=== PATIENT | female | born 1940 | race Caucasian/White ===

== ENCOUNTER → 2016-10-25 | Outpatient (CLI) | payer OTHER ==
[~2016-10-25] MED LIST: ADAL40KI SQ; ASPEC325 PO; ASPI81TA28 PO; ATOR10TA82 PO; CALC200S7; CALC500C70 PO; FLV1 PO; FSMD/70 PO; FURO-85 PO; GADAVIST IV PRN; HYDR-5688 PO; IBUP-1105 PO; KCLP20 PO; LDDP5 TD; LEVO25TA PO; LISI-461 PO; LOSA50TA6 PO; LSX40 PO; METH2.5T PO; OXYC-57 PO; POTA20TA16 PO; PRAM0.129 PO; PRD/1 PO; PRLSR20 PO; SULI200T4 PO; VTMB12 PO; VTMD1000 PO
--- NOTE | 2016-10-25 16:05 | DIAGNOSTIC IMAGING REPORT ---
MRI pelvis PELVIS COMBO CLINICAL HISTORY: ARTHROPATHY OF PELVIS pain TECHNIQUE: Multiaxial MRI acquisition COMPARISON STUDY: None FINDINGS: Prior L4-L5 laminectomy and fusion. Prior left hip arthroplasty. Signal characteristics the pelvic osseous structures appear unremarkable. Potential small fluid component lateral to the left hip arthroplasty which may be indicative of a small residual seroma and/or hematoma. Abnormal signal characteristics of the sacral wings Note is made that there is diminished signal involving the possibility of nonvisualized sacral insufficiency fractures/nonspecific bone marrow edema. IMPRESSION: 1. Altered signal in general throughout the bulk of the sacrum and sacral wings bilaterally. 2. Possibility of sacral insufficiency fractures/or nonspecific bone marrow edema must be considered. 3. Findings of a low lumbar laminectomy and fusion as well as a left hip arthroplasty are noted. 4. Small seroma lateral to the left hip arthroplasty. Electronically signed by: Chad Noel M.D. 10/25/2016 4:03 PM Dictated Date/Time: 10/25/2016 3:59 PM
== END | disposition home or self-care (01) ==
LOC: C.MRI 13:47
PROVIDERS: ATTEND Orthopaedic Surgery Orthopaedic Surgery of the Spine
DX: M16.10 Unilateral primary osteoarthritis, unspecified hip (principal); M46.1 Sacroiliitis, not elsewhere classified

== ENCOUNTER 2016-11-05 15:10 | Observation (INO) | payer OTHER ==
[~2016-11-05] VITALS: Ht 157.5 cm; Wt 75.0 kg
[~2016-11-05 15:10] MED LIST changes: -ADAL40KI SQ; -ASPI81TA28 PO; -CALC200S7; -FSMD/70 PO; -FURO-85 PO; -GADAVIST IV PRN; -IBUP-1105 PO; -LDDP5 TD; -LOSA50TA6 PO; -POTA20TA16 PO; -PRLSR20 PO; -SULI200T4 PO; -VTMB12 PO; -VTMD1000 PO
[2016-11-05] MEDS ORDERED: ONDANSETRON INJ 2 MG/ML 2 ML VIAL IV STA (15:42)
[2016-11-05] MEDS: HYDROmorphone INJ 0.5 MG/0.5 ML SYR IV PRN ×2 (16:14→18:52)
[2016-11-05 16:16] LABS: BASO % 0.5 %; BASO ABS # 0.04 K/uL (0-0.2); COMPLETE YES; EOS % 0.2 %; HEMATOCRIT 43.3 % (37-47); IG% 1.1 %; LYMPH % 16.7 %; LYMPH ABS # 1.41 K/uL (1.2-3.4); MEAN CELL VOLUME 102.1 fL (80-100); MEAN CORPUSCULAR HEMOGLOBIN 31.6 pg (25-34); MEAN CORPUSCULAR HGB CONC 30.9 g/dl (32-36); MEAN PLATELET VOLUME 9.8 fL (7.4-10.4); MONO % 3.2 %; NEUT % 78.3 %; PLATELET COUNT 284 K/uL (130-400); RED BLOOD COUNT 4.24 M/uL (4.2-5.4); WHITE BLOOD COUNT 8.42 K/uL (4.8-10.8)
[2016-11-05 16:24] LABS: PROTHROMBIN TIME (PATIENT) 11.2 SECONDS (9.0-12.0)
[2016-11-05 16:31] LABS: BUN/CREATININE RATIO 15.6 (10-20); CALCIUM 8.9 mg/dl (8.5-10.1); POTASSIUM 4.3 mmol/L (3.5-5.1)
--- NOTE | 2016-11-05 16:48 | DIAGNOSTIC IMAGING REPORT ---
CT SCAN OF THE BONY PELVIS WITHOUT IV CONTRAST CLINICAL HISTORY: Right pelvic pain. Known sacral insufficiency fractures. COMPARISON STUDY: MRI of the pelvis dated 10/25/2016. TECHNIQUE: CT scan of the bony pelvis is performed from the pelvic inlet to the proximal femora. Images are reviewed in the axial, sagittal and coronal planes. IV contrast was not administered for this examination. CT DOSE: 880.04 mGy cm FINDINGS: The skeletal structures are osteopenic. Bilateral sacral insufficiency fractures are identified. These were also seen on the 10/25/2016 pelvic MRI. No additional fracture is seen. No lytic or blastic lesions are identified. Fusion hardware is noted at L4-L5. A left hip arthroplasty is in place. There is no radiographic evidence of fracture or osteonecrosis involving the right hip. Sclerotic change is seen at the pubic symphysis. There is atherosclerotic calcification of the distal abdominal aorta and iliac arteries. 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 The bladder is grossly normal as visualized. The uterus is surgically absent. No adnexal lesion is suggested. There is moderate diverticulosis of the sigmoid colon without CT evidence of acute diverticulitis. No pelvic sidewall or inguinal lymphadenopathy is seen. There is symmetric atrophy of the pelvic musculature. A small fat-containing umbilical hernia is noted. IMPRESSION: 1. Bilateral sacral insufficiency fractures. These were also seen by MRI on 10/25/2016. 2. No acute bony abnormality is identified in the pelvis. 3. Sigmoid diverticulosis without CT evidence of acute diverticulitis. 4. Additional findings as above. Dictated: 11/05/2016 4:39 PM Transcribed: 11/05/2016 4:47 PM Greg Electronically signed by: Preet Madera M.D. 11/05/2016 4:54 PM Dictated Date/Time: 11/05/2016 4:39 PM
[2016-11-05] MEDS ORDERED: POTA20TA16 PO (16:55)
[2016-11-05] MEDS ORDERED: FSMD/70 PO (16:55)
[2016-11-05] MEDS ORDERED: FURO-85 PO (16:55)
[2016-11-05] MEDS ORDERED: PRAM0.129 PO (16:55)
[2016-11-05] MEDS ORDERED: ASPI81TA28 PO (16:55)
[2016-11-05] MEDS ORDERED: OXYC-57 PO (16:55)
[2016-11-05] MEDS ORDERED: SULI200T4 PO (16:55)
[2016-11-05] MEDS ORDERED: LOSA50TA6 PO (16:55)
[2016-11-05] MEDS ORDERED: PRLSR20 PO (16:55)
[2016-11-05] MEDS ORDERED: PRD/1 PO (16:55)
[2016-11-05] MEDS ORDERED: ADAL40KI SQ (17:37)
[2016-11-05] MEDS ORDERED: CALC200S7 (17:37)
[2016-11-05] MEDS ORDERED: HYDR-5688 PO (17:38)
--- NOTE | 2016-11-05 17:39 | DIAGNOSTIC IMAGING REPORT ---
ULTRASOUND RIGHT LOWER EXTREMITY VENOUS CLINICAL HISTORY: Right leg swelling. COMPARISON STUDY: No priors. TECHNIQUE: Real-time, grayscale, and color Doppler sonography of the deep veins of the right lower extremity was performed from the inguinal crease to the calf. Compression and augmentation were utilized. FINDINGS: There is no sonographic evidence of deep venous thrombosis identified in the right lower extremity. The common femoral, superficial femoral, and popliteal veins are patent and normally compressible. The greater saphenous vein and the profunda femoris vein at the junction with the common femoral vein are clear. The visualized calf veins are patent. IMPRESSION: There is no sonographic evidence of deep venous thrombosis identified in the right lower extremity. Electronically signed by: Preet Madera M.D. 11/05/2016 5:38 PM Dictated Date/Time: 11/05/2016 5:37 PM
[2016-11-05] MEDS ORDERED: MoRPHine SULFATE 2 MG/ML CARP IV PRN (21:00)
[2016-11-05] MEDS ORDERED: ONDANSETRON INJ 2 MG/ML 2 ML VIAL IV PRN (21:00)
[2016-11-05] MEDS ORDERED: MoRPHine SULFATE 4 MG/ML 1 ML CARP\\VIAL IV PRN (21:00)
[2016-11-05] MEDS: TRIAMCINOLONE ACET 0.5% CR 15 GM TUBE EXT SCH (21:00)
[2016-11-05 22:18] VITALS: BP 150/78; PULSE 94; TEMP 36.9; Ht 157.5 cm; Wt 75.0 kg
[2016-11-05 22:54] VITALS: BP 149/70; PULSE 62; TEMP 36.8; O2SAT 93
[2016-11-05] MEDS: PRAMIPEXOLE DIHYDROCHLORIDE 0.25MG TAB PO SCH (23:11)
[2016-11-05] MEDS: CALCIUM 600MG + VIT D 400 IU TAB PO SCH (23:12)
--- NOTE | 2016-11-05 23:17 | History and Physical ---
History & Physical Date & Time of Service: Nov 05, 2016 at 23:17 Chief Complaint: Bilateral Sacral Insufficiency Fx Primary Care Physician: Ching Hu D.O. History of Present Illness Source: patient The patient is a 76-year-old female who presents to the emergency department with worsening right pelvic and hip pain, that initially began about 1-1/2 weeks ago, and has worsened to the point of not being able to ambulate. She had imaging studies performed on October 25 which showed bilateral sacral insufficiency fractures, for which she has been followed by Dr. Bowman from orthopedic surgery. 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 (3) Rheumatoid arthritis Status: Chronic Surgical Problems: (1) H/O: hysterectomy Status: Resolved (2) History of left hip replacement Status: Resolved (3) Hx of CABG Status: Resolved Family History Cancer Hypertension Social History Smoking Status: Former Smoker Smokeless Tobacco Use: No Alcohol Use: none Drug Use: none Occupational Status: retired Multi-Drug Resistant Organisms History of MDRO: No Allergies Coded Allergies: Acetaminophen (Verified Adverse Reaction, Intermediate, stomach pain/ nausea, vomiting, 03/15/14) Oxycodone (Verified Adverse Reaction, Intermediate, stomach pain/ nausea, vomiting, 03/15/14) Home Medications Scheduled Adalimumab (Humira Pen), 1 DOSE SQ [id number] Aspirin (Aspirin Ec), 81 MG PO DAILY Atorvastatin (Lipitor), 10 MG PO DAILY Calcitonin ([place]) (Miacalcin), 1 SPRAY NA UD Calcium/Vitamin D (Os-Ruben 500 Plus D), 1 TAB PO BID Folic Acid (Folic Acid), 1 MG PO DAILY Levothyroxine Sodium (Synthroid), 25 MCG PO DAILY Losartan Potassium (Cozaar), 50 MG PO DAILY Methotrexate (Methotrexate), 15 MG PO TUESDAY Omeprazole (Prilosec), 20 MG PO DAILY Pramipexole (Mirapex), 2 TABS PO BID Prednisone (Prednisone), 3 MG PO DAILY Scheduled PRN Furosemide (Lasix), 20 MG PO DAILY PRN for EDEMA Hydrocodone/Acetaminophen 5MG/325MG ([place] 5MG/325MG), 1-2 TABLET PO Q6 PRN for Pain Potassium Ext Rel (Klor-Con), 20 MEQ PO DAILY PRN for Sulindac ([place]), 200 MG PO BID PRN for PRN Review of Systems The patient denies chest pain, palpitations, shortness of breath, cough, lower extremity swelling, vision change, hearing change, sore throat, fevers, chills, sweats, weight change, fatigue, nausea, vomiting, abdominal pain, blood in urine or stool, dysuria, urinary frequency or urgency, lightheadedness, dizziness, headache, memory loss, rash, abnormal bruising or bleeding, numbness or tingling in arms, generalized arthralgias or myalgias, neck pain, night sweats, or allergy symptoms. The review of systems is otherwise negative other than for that already noted above, and at least 10 systems have been reviewed. Physical Exam Vital Signs Date Time Temp Pulse Resp B/P (MAP) Pulse Ox O2 Delivery O2 Flow Rate FiO2 11/05/16 22:18 36.9 94 20 150/78 Room Air 11/05/16 21:47 58 20 154/78 98 Room Air 11/05/16 19:47 58 18 153/77 96 Room Air 11/05/16 18:05 63 20 160/99 93 Room Air 11/05/16 16:20 63 20 139/71 93 Room Air 11/05/16 16:19 93 Room Air 11/05/16 15:19 36.6 66 20 167/66 99 Room Air The patient is awake, well-developed and adequately nourished, alert and oriented 3, normocephalic and atraumatic, lying in bed and in no acute distress. HEENT--PERRL, EOMI, mucous membranes and oropharynx dry. Neck--supple, no JVD or bruits, thyroid normal, trachea midline, no adenopathy. Heart--normal S1 and S2, no extra beats, no murmurs, rubs or gallops. Lungs--clear bilaterally with good air movement, no respiratory distress, no accessory muscle use. Abdomen--normal bowel sounds and soft, nontender and nondistended, no hernias or masses, no organomegaly. Extremities--no cyanosis, clubbing or edema. There are good distal pulses b/l. Dermatologic--left lower extremity involving the foot, ankle and lower third of leg with psoriasis. Neurologic--cranial nerves II through XII grossly intact. Rheumatologic--decreased range of motion of right hip with reproducible pain over right pelvis and hip. Psychiatric--normal affect. Diagnostics Laboratory Results Results Past 24 Hours Test 11/05/16 16:00 Range/Units White Blood Count 8.42 4.8-10.8 K/uL Red Blood Count 4.24 4.2-5.4 M/uL Hemoglobin 13.4 12.0-16.0 g/dL Hematocrit 43.3 37-47 % Mean Corpuscular Volume 102.1 80-100 fL Mean Corpuscular Hemoglobin 31.6 25-34 pg Mean Corpuscular Hemoglobin Concent 30.9 32-36 g/dl Platelet Count 284 130-400 K/uL Mean Platelet Volume 9.8 7.4-10.4 fL Neutrophils (%) (Auto) 78.3 % Lymphocytes (%) (Auto) 16.7 % Monocytes (%) (Auto) 3.2 % Eosinophils (%) (Auto) 0.2 % Basophils (%) (Auto) 0.5 % Neutrophils # (Auto) 6.59 1.4-6.5 K/uL Lymphocytes # (Auto) 1.41 1.2-3.4 K/uL Monocytes # (Auto) 0.27 0.11-0.59 K/uL Eosinophils # (Auto) 0.02 0-0.5 K/uL Basophils # (Auto) 0.04 0-0.2 K/uL RDW Standard Deviation 56.4 36.4-46.3 fL RDW Coefficient of Variation 15.2 11.5-14.5 % Immature Granulocyte % (Auto) 1.1 % Immature Granulocyte # (Auto) 0.09 0.00-0.02 K/uL Prothrombin Time 11.2 9.0-12.0 SECONDS Prothromb Time International Ratio 1.0 0.9-1.1 Activated Partial Thromboplast Time 25.9 21.0-31.0 SECONDS Partial Thromboplastin Ratio 1.0 Sodium Level 143 136-145 mmol/L Potassium Level 4.3 3.5-5.1 mmol/L Chloride Level 109 98-107 mmol/L Carbon Dioxide Level 27 21-32 mmol/L Anion Gap 7.0 3-11 mmol/L Blood Urea Nitrogen 16 7-18 mg/dl Creatinine 1.00 0.60-1.20 mg/dl Est Creatinine Clear Calc Drug Dose 45.0 ml/min Estimated GFR () 62.5 Estimated GFR (Non- 53.9 BUN/Creatinine Ratio 15.6 10-20 Random Glucose 129 70-99 mg/dl Calcium Level 8.9 8.5-10.1 mg/dl Diagnostic Radiology Patient Name: DOMINIQUE POLK Unit Number: [id number] Dictated: 11/05/161638 Transcribed: 11/05/161646 Printed Date/Time: [~ rep prt dt]/[~ rep prt tm] [~ rep ct labl] - [~ rep ct ivnm] [facility] [place] [address] Dictated: 11/05/161638 Transcribed: 11/05/161646 Printed Date/Time: [~ rep prt dt]/[~ rep prt tm] [~ rep ct labl] - [~ rep ct ivnm] [~ rep ct add3]] CT SCAN OF THE BONY PELVIS WITHOUT IV CONTRAST CLINICAL HISTORY: Right pelvic pain. Known sacral insufficiency fractures. COMPARISON STUDY: MRI of the pelvis dated 10/25/2016. TECHNIQUE: CT scan of the bony pelvis is performed from the pelvic inlet to the proximal femora. Images are reviewed in the axial, sagittal and coronal planes. IV contrast was not administered for this examination. CT DOSE: 880.04 mGy cm FINDINGS: The skeletal structures are osteopenic. Bilateral sacral insufficiency fractures are identified. These were also seen on the 10/25/2016 pelvic MRI. No additional fracture is seen. No lytic or blastic lesions are identified. Fusion hardware is noted at L4-L5. A left hip arthroplasty is in place. There is no radiographic evidence of fracture or osteonecrosis involving the right hip. Sclerotic change is seen at the pubic symphysis. There is atherosclerotic calcification of the distal abdominal aorta and iliac arteries. 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 The bladder is grossly normal as visualized. The uterus is surgically absent. No adnexal lesion is suggested. There is moderate diverticulosis of the sigmoid colon without CT evidence of acute diverticulitis. No pelvic sidewall or inguinal lymphadenopathy is seen. There is symmetric atrophy of the pelvic musculature. A small fat-containing umbilical hernia is noted. IMPRESSION: 1. Bilateral sacral insufficiency fractures. These were also seen by MRI on 10/25/2016. 2. No acute bony abnormality is identified in the pelvis. 3. Sigmoid diverticulosis without CT evidence of acute diverticulitis. 4. Additional findings as above. Dictated: 11/05/2016 4:39 PM Transcribed: 11/05/2016 4:47 PM YAYO_Romero Electronically signed by: Preet Madera M.D. 11/05/2016 4:54 PM Dictated Date/Time: 11/05/2016 4:39 PM The status of this report is Signed. Draft = Not yet reviewed or approved by Radiologist. Signed = Reviewed and approved by Radiologist. <AttendingPhy></AttendingPhy> <FamilyPhy>Ching Hu D.O.</FamilyPhy> < PrimaryPhy>Ching Hu D.O.</PrimaryPhy> <UnitNumber>[id number]</UnitNumber> <VisitNumber>[id number]</VisitNumber> <PatientName>DOMINIQUE POLK</PatientName > <DateOfBirth>1940</DateOfBirth> <Location>[facility]</Location> <ServiceDate> 11/05/16</ServiceDate> <MNE>ESINDI</MNE> <OrderingPhy>[place] MD</ OrderingPhy> <OrderingPhyMNE>f rep ord dr gerardo</OrderingPhyMNE> <DictatingPhyMNE> f rep dict dr greardo</DictatingPhyMNE> <CCListMNE>f rep ct humaira</CCListMNE> < AdmittingPhyMNE>f pt admit dr gerardo</AdmittingPhyMNE> <AttendingPhyMNE>f pt attend dr gerardo</AttendingPhyMNE> <ConsultingPhyMNE>f pt consult dr gerardo</ConsultingPhyMNE> <FamilyPhyMNE>f pt fam dr gerardo</FamilyPhyMNE> <OtherPhyMNE>f pt other dr gerardo</OtherPhyMNE> < PrimaryPhyMNE>f pt prim care dr gerardo</PrimaryPhyMNE> <ReferringPhyMNE>f pt referring dr gerardo</ReferringPhyMNE> Patient Name: DOMINIQUE POLK Unit Number: [id number] Dictated: 11/05/161736 Transcribed: 11/05/161736 EV Printed Date/Time: [~ rep prt dt]/[~ rep prt tm] [~ rep ct labl] - [~ rep ct ivnm] [facility] [place] [address] Dictated: 11/05/161736 Transcribed: 11/05/161736 EV Printed Date/Time: [~ rep prt dt]/[~ rep prt tm] [~ rep ct labl] - [~ rep ct ivnm] ULTRASOUND RIGHT LOWER EXTREMITY VENOUS CLINICAL HISTORY: Right leg swelling. COMPARISON STUDY: No priors. TECHNIQUE: Real-time, grayscale, and color Doppler sonography of the deep veins of the right lower extremity was performed from the inguinal crease to the calf. Compression and augmentation were utilized. FINDINGS: There is no sonographic evidence of deep venous thrombosis identified in the right lower extremity. The common femoral, superficial femoral, and popliteal veins are patent and normally compressible. The greater saphenous vein and the profunda femoris vein at the junction with the common femoral vein are clear. The visualized calf veins are patent. IMPRESSION: There is no sonographic evidence of deep venous thrombosis identified in the right lower extremity. Electronically signed by: Preet Madera M.D. 11/05/2016 5:38 PM Dictated Date/Time: 11/05/2016 5:37 PM The status of this report is Signed. Draft = Not yet reviewed or approved by Radiologist. Signed = Reviewed and approved by Radiologist. <AttendingPhy></AttendingPhy> <FamilyPhy>Ching Hu DStevie</FamilyPhy> < PrimaryPhy>Ching Hu D.O.</PrimaryPhy> <UnitNumber>[id number]</UnitNumber> <VisitNumber>[id number]</VisitNumber> <PatientName>DOMINIQUE POLK</PatientName > <DateOfBirth>1940</DateOfBirth> <Location>[facility]</Location> <ServiceDate> 06/02/17</ServiceDate> <MNE>ESINDI</MNE> <OrderingPhy>[place] MD</ OrderingPhy> <OrderingPhyMNE>f rep ord dr gerardo</OrderingPhyMNE> <DictatingPhyMNE> f rep dict dr gerardo</DictatingPhyMNE> <CCListMNE>f rep ct mne</CCListMNE> < AdmittingPhyMNE>f pt admit dr gerardo</AdmittingPhyMNE> <AttendingPhyMNE>f pt attend dr gerardo</AttendingPhyMNE> <ConsultingPhyMNE>f pt consult dr gerardo</ConsultingPhyMNE> <FamilyPhyMNE>f pt fam dr gerardo</FamilyPhyMNE> <OtherPhyMNE>f pt other dr gerardo</OtherPhyMNE> < PrimaryPhyMNE>f pt prim care dr gerardo</PrimaryPhyMNE> <ReferringPhyMNE>f pt referring dr gerardo</ReferringPhyMNE> Impression Assessment and Plan Bilateral sacral insufficiency fractures/history L4 5 fusion/left total hip arthroplasty/rheumatoid arthritis--the patient will be admitted to the medical surgical floor due to inability to ambulate and for pain management. We will consult for PT/OT and social media senior associate. She will likely need an inpatient rehabilitation stay. Outpatient regimen of Humira and methotrexate will be held. We'll consult Dr. Bowman from orthopedic surgery, whom she has followed with in the outpatient setting. Continue calcitonin, calcium and vitamin D, folic acid, and prednisone 3 mg by mouth daily. Restless leg syndrome--continue pramipexole 2 tablets by mouth twice a day. GERD--change omeprazole 20 mg by mouth daily to pantoprazole 40 mg by mouth daily. Left lower extremity psoriasis--start triamcinolone cream twice a day. Hypothyroidism--continue levothyroxine sodium 25 g by mouth daily. Hypercholesterolemia--continue atorvastatin 10 mg by mouth daily. Hypertension--continue losartan 50 mg by mouth daily and aspirin 81 mg by mouth daily. Level of Care Med/Surg Advanced Directives Existing Advance Directive: No Existing Living Will: Yes Existing Power of Skip Locator: Yes Resuscitation Status FULL RESUSCITATION VTE Prophylaxis VTE Risk Assessment Done? Y/N: Yes Risk Level: Not Assessed Given or contraindicated: SCD's
[2016-11-05] MEDS ORDERED: IV FLUIDS COMPLETED PRN (23:45)
[2016-11-05] MEDS: HYDROCODONE/ACETAMOPHEN 5/325MG TAB PO PRN (23:50)
--- NOTE | 2016-11-06 00:40 | EMERGENCY ROOM VISIT NOTE ---
History Report prepared by Deana: Jorge Branch Under the Supervision of: Dr. Jose Vegas M.D. First contact with patient: 15:35 Chief Complaint: PELVIC PAIN Stated Complaint: PELVIS PAIN History of Present Illness The patient is a 76 year old female who presents to the Emergency Room with complaints of severe and worsening right pelvic pain starting about a week and a half ago. She reports pain radiation to the right groin area. She also complains of right lower extremity swelling. She has worsening pain with movement and ambulation. She is no longer able to bear weight on the right leg due to the severity of the pain. She has a history of osteoporosis. She had an MRI about a week and a half ago which showed questions of sacral insufficiency fractures. She has been following the instructions of the orthopedic surgeon without relief. She has been taking calcium with vitamin D and steroids as prescribed without relief. She denies any recent falls or injuries. Pt denies LOC, headache, fevers, chills, diaphoresis, visual changes, neck pain , chest pain, breathing difficulties, nausea, vomiting, abdominal pain, back pain, melena, hematochezia, urinary symptoms, numbness, weakness, rash, or other complaints. Source of History: patient Onset: about a week and a half ago Position: pelvis (right) Symptom Intensity: severe Timing: worsening Modifying Factors (Worsening): movement, other (ambulation) Modifying Factors (Relieving): other (calcium with vitamin D and steroids as prescribed without relief) Review of Systems See HPI for pertinent positives and negatives. A total of ten systems were reviewed and were otherwise negative. Past Medical & Surgical Medical Problems: (1) DJD (degenerative joint disease) of hip (2) Lumbar disc herniation with radiculopathy (3) Rheumatoid arthritis Surgical Problems: (1) H/O: hysterectomy (2) History of left hip replacement (3) Hx of CABG Family History Cancer Hypertension Social History Smoking Status: Former Smoker Alcohol Use: none Marital Status: Housing Status: lives with family Occupation Status: retired Current/Historical Medications Scheduled Adalimumab (Humira Pen), 1 DOSE SQ [id number] Aspirin (Aspirin Ec), 81 MG PO DAILY Atorvastatin (Lipitor), 10 MG PO DAILY Calcitonin (Alleghany) (Miacalcin), 1 SPRAY NA UD Calcium/Vitamin D (Os-Ruben 500 Plus D), 1 TAB PO BID Folic Acid (Folic Acid), 1 MG PO DAILY Levothyroxine Sodium (Synthroid), 25 MCG PO DAILY Losartan Potassium (Cozaar), 50 MG PO DAILY Methotrexate (Methotrexate), 15 MG PO TUESDAY Omeprazole (Prilosec), 20 MG PO DAILY Pramipexole (Mirapex), 2 TABS PO BID Prednisone (Prednisone), 3 MG PO DAILY Scheduled PRN Furosemide (Lasix), 20 MG PO DAILY PRN for EDEMA Hydrocodone/Acetaminophen 5MG/325MG (Mesa 5MG/325MG), 1-2 TABLET PO Q6 PRN for Pain Potassium Ext Rel (Klor-Con), 20 MEQ PO DAILY PRN for Sulindac (Clinoril), 200 MG PO BID PRN for PRN Allergies Coded Allergies: Acetaminophen (Verified Adverse Reaction, Intermediate, stomach pain/ nausea, vomiting, 03/15/14) Oxycodone (Verified Adverse Reaction, Intermediate, stomach pain/ nausea, vomiting, 03/15/14) Physical Exam Vital Signs Date Time Temp Pulse Resp B/P (MAP) Pulse Ox O2 Delivery O2 Flow Rate FiO2 11/05/16 19:47 58 18 153/77 96 Room Air 11/05/16 18:05 63 20 160/99 93 Room Air 11/05/16 16:20 63 20 139/71 93 Room Air 11/05/16 16:19 93 Room Air 11/05/16 15:19 36.6 66 20 167/66 99 Room Air Physical Exam GENERAL: Awake, alert, well-appearing, in no distress HENT: Normocephalic, atraumatic. Oropharynx unremarkable. EYES: Normal conjunctiva. Sclera non-icteric. NECK: Supple. No nuchal rigidity. FROM. No JVD. RESPIRATORY: Clear to auscultation. CARDIAC: Regular rate, normal rhythm. Extremities warm and well perfused. Pulses equal. ABDOMEN: Soft, non-distended. No tenderness to palpation. No rebound or guarding. No masses. RECTAL: Deferred. MUSCULOSKELETAL: Chest examination reveals no tenderness. The back is symmetrical on inspection without obvious abnormality. There is no CVA tenderness to palpation. No joint edema. LOWER EXTREMITIES: Calves are non-tender. No discoloration. Right leg is slightly larger than the left. 1+ edema on the right side. Range of motion of the right hip is limited secondary to pain. Right hip and right hemipelvis pain with palpation. NEURO: Normal sensorium. No sensory or motor deficits noted. SKIN: No rash or jaundice noted. Medical Decision & Procedures ER Provider Diagnostic Interpretation: CT and US: Radiology results as stated below per my review and radiologist interpretation CT SCAN OF THE BONY PELVIS WITHOUT IV CONTRAST CLINICAL HISTORY: Right pelvic pain. Known sacral insufficiency fractures. COMPARISON STUDY: MRI of the pelvis dated 10/25/2016. TECHNIQUE: CT scan of the bony pelvis is performed from the pelvic inlet to the proximal femora. Images are reviewed in the axial, sagittal and coronal planes. IV contrast was not administered for this examination. CT DOSE: 880.04 mGy cm FINDINGS: The skeletal structures are osteopenic. Bilateral sacral insufficiency fractures are identified. These were also seen on the 10/25/2016 pelvic MRI. No additional fracture is seen. No lytic or blastic lesions are identified. Fusion hardware is noted at L4-L5. A left hip arthroplasty is in place. There is no radiographic evidence of fracture or osteonecrosis involving the right hip. Sclerotic change is seen at the pubic symphysis. There is atherosclerotic calcification of the distal abdominal aorta and iliac arteries. 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 The bladder is grossly normal as visualized. The uterus is surgically absent. No adnexal lesion is suggested. There is moderate diverticulosis of the sigmoid colon without CT evidence of acute diverticulitis. No pelvic sidewall or inguinal lymphadenopathy is seen. There is symmetric atrophy of the pelvic musculature. A small fat-containing umbilical hernia is noted. IMPRESSION: 1. Bilateral sacral insufficiency fractures. These were also seen by MRI on 10/25/2016. 2. No acute bony abnormality is identified in the pelvis. 3. Sigmoid diverticulosis without CT evidence of acute diverticulitis. 4. Additional findings as above. Dictated: 11/05/2016 4:39 PM Transcribed: 11/05/2016 4:47 PM Greg Electronically signed by: Preet Madera M.D. 11/05/2016 4:54 PM Dictated Date/Time: 11/05/2016 4:39 PM ULTRASOUND RIGHT LOWER EXTREMITY VENOUS CLINICAL HISTORY: Right leg swelling. COMPARISON STUDY: No priors. TECHNIQUE: Real-time, grayscale, and color Doppler sonography of the deep veins of the right lower extremity was performed from the inguinal crease to the calf. Compression and augmentation were utilized. FINDINGS: There is no sonographic evidence of deep venous thrombosis identified in the right lower extremity. The common femoral, superficial femoral, and popliteal veins are patent and normally compressible. The greater saphenous vein and the profunda femoris vein at the junction with the common femoral vein are clear. The visualized calf veins are patent. IMPRESSION: There is no sonographic evidence of deep venous thrombosis identified in the right lower extremity. Electronically signed by: Preet Madera M.D. 11/05/2016 5:38 PM Dictated Date/Time: 11/05/2016 5:37 PM Laboratory Results 11/05/16 16:00 Red Blood Count 4.24, Mean Corpuscular Volume 102.1, Mean Corpuscular Hemoglobin 31.6, Mean Corpuscular Hemoglobin Concent 30.9, Mean Platelet Volume 9.8, Neutrophils (%) (Auto) 78.3, Lymphocytes (%) (Auto) 16.7, Monocytes (%) ( Auto) 3.2, Eosinophils (%) (Auto) 0.2, Basophils (%) (Auto) 0.5, Neutrophils # ( Auto) 6.59, Lymphocytes # (Auto) 1.41, Monocytes # (Auto) 0.27, Eosinophils # ( Auto) 0.02, Basophils # (Auto) 0.04 11/05/16 16:00 Test 11/05/16 16:00 White Blood Count 8.42 K/uL (4.8-10.8) Red Blood Count 4.24 M/uL (4.2-5.4) Hemoglobin 13.4 g/dL (12.0-16.0) Hematocrit 43.3 % (37-47) Mean Corpuscular Volume 102.1 fL (80-100) Mean Corpuscular Hemoglobin 31.6 pg (25-34) Mean Corpuscular Hemoglobin Concent 30.9 g/dl (32-36) Platelet Count 284 K/uL (130-400) Mean Platelet Volume 9.8 fL (7.4-10.4) Neutrophils (%) (Auto) 78.3 % Lymphocytes (%) (Auto) 16.7 % Monocytes (%) (Auto) 3.2 % Eosinophils (%) (Auto) 0.2 % Basophils (%) (Auto) 0.5 % Neutrophils # (Auto) 6.59 K/uL (1.4-6.5) Lymphocytes # (Auto) 1.41 K/uL (1.2-3.4) Monocytes # (Auto) 0.27 K/uL (0.11-0.59) Eosinophils # (Auto) 0.02 K/uL (0-0.5) Basophils # (Auto) 0.04 K/uL (0-0.2) RDW Standard Deviation 56.4 fL (36.4-46.3) RDW Coefficient of Variation 15.2 % (11.5-14.5) Immature Granulocyte % (Auto) 1.1 % Immature Granulocyte # (Auto) 0.09 K/uL (0.00-0.02) Prothrombin Time 11.2 SECONDS (9.0-12.0) Prothromb Time International Ratio 1.0 (0.9-1.1) Activated Partial Thromboplast Time 25.9 SECONDS (21.0-31.0) Partial Thromboplastin Ratio 1.0 Anion Gap 7.0 mmol/L (3-11) Est Creatinine Clear Calc Drug Dose 45.0 ml/min Estimated GFR () 62.5 Estimated GFR (Non- 53.9 BUN/Creatinine Ratio 15.6 (10-20) Calcium Level 8.9 mg/dl (8.5-10.1) Laboratory results reviewed by me Medications Administered Medications (Trade) Dose Ordered Sig/Jocelyn Route Start Time Stop Time Status Last Admin Dose Admin Ondansetron HCl (Zofran Inj) 4 mg NOW STAT IV 11/05/16 15:42 11/05/16 15:48 DC 11/05/16 16:13 4 MG Hydromorphone HCl (Dilaudid Inj) 0.5 mg Q15M PRN IV 11/05/16 15:45 11/05/16 22:21 DC 11/05/16 18:52 0.5 MG Calcium/Vitamin D (Caltrate Plus Tab) 1 tab BID PO 11/05/16 21:00 12/05/16 20:59 11/05/16 23:12 1 TAB Acetaminophen/ Hydrocodone Bitart (Mesa 5/325 Tab) 1 tab Q4 PRN PO 11/05/16 21:00 11/19/16 20:59 11/05/16 23:50 1 TAB Pramipexole Dihydrochloride (miraPEX TAB) 0.25 mg BID PO 11/05/16 21:00 12/05/16 20:59 11/05/16 23:11 0.25 MG ED Course 1535: The patient was evaluated in room B03B. A complete history and physical exam was performed. Medication Reconciliation: I attest that I have personally reviewed the patient' s current medication list Blood pressure screening: Patient was found to have an elevated blood pressure and was referred to their primary doctor for recheck and further treatment. 1542: Zofran Inj 4 mg IV 1545: Dilaudid Inj 0.5 mg IV 1825: marketing sales manager was unable to arrange rehab. Upon reexamination, the patient was resting comfortably. I discussed the test results and treatment plan with her. The patient will be evaluated for further management. 1923: I discussed the patient's case with Dr. Chatterjee, from [facility] Medical Decision Triage Nursing notes reviewed. The patient's presentation and history were concerning for pelvis and hip pain with difficulty walking. Etiologies such as soft tissue injury, fracture, dislocation, neurovascular compromise, compartment syndrome, as well as others were entertained. The patient was evaluated. She was treated with Zofran and Dilaudid. On reassessment she was doing better. Patient has having significant difficulty ambulating. CT scan and blood work were obtained. Blood work was unremarkable. The patient had insufficiency fractures noted on CT imaging. Case management was involved from the beginning. Unfortunately due to insurance issues at this time she cannot go directly to [facility]. She will need further management in the hospital as well as assessment by PT and OT. Consultation was made with internal medicine. The patient was evaluated in the Emergency Room for further management. Consults Time Called: [id number] Consulting Physician: Dr. Chatterjee, from [facility] Returned Call: 1923 I discussed the patient's case with Dr. Chatterjee, from [facility]. Impression Primary Impression: Sacral fracture Additional Impression: Ambulatory dysfunction Scribe Attestation The scribe's documentation has been prepared under my direction and personally reviewed by me in its entirety. I confirm that the note above accurately reflects all work, treatment, procedures, and medical decision making performed by me. Departure Information Dispostion Being Evaluated By Hospitalist Referrals Ching Hu D.O. (PCP) Patient Instructions My [facility] Problem Qualifiers
[2016-11-06] MEDS: HYDROCODONE/ACETAMOPHEN 5/325MG TAB PO PRN ×3 (05:29→20:37)
[2016-11-06] MEDS: LEVOTHYROXINE 25 MCG TAB PO SCH (05:45)
[2016-11-06 08:26] LABS: BASO % 0.6 %; BASO ABS # 0.04 K/uL (0-0.2); COMPLETE YES; EOS % 2.3 %; HEMATOCRIT 37.9 % (37-47); IG% 1.6 %; LYMPH % 33.5 %; LYMPH ABS # 2.35 K/uL (1.2-3.4); MEAN CELL VOLUME 103.6 fL (80-100); MEAN CORPUSCULAR HEMOGLOBIN 32.8 pg (25-34); MEAN CORPUSCULAR HGB CONC 31.7 g/dl (32-36); MEAN PLATELET VOLUME 9.9 fL (7.4-10.4); PLATELET COUNT 244 K/uL (130-400); RED BLOOD COUNT 3.66 M/uL (4.2-5.4); WHITE BLOOD COUNT 7.02 K/uL (4.8-10.8)
[2016-11-06 08:37] VITALS: BP 136/66; PULSE 54; TEMP 36.8; O2SAT 94
--- NOTE | 2016-11-06 08:46 | CONSULTATION REPORT ---
DATE OF CONSULTATION: 11/06/2016 ORTHOPEDIC SPINE CONSULTATION HISTORY OF PRESENT ILLNESS: The patient is known to our practice. She has undergone prior L4-L5 decompression and fusion in March of 2018. She states she has recently been following with Dr. Bowman for sacral insufficiency fractures. She saw him for current pain a few weeks ago. MRI was pursued on 10/25/2016, which was performed at [facility]. This revealed possible sacral insufficiency fractures. Small seroma over the left hip. She followed up with him 2 days after MRI was performed. He gave her some pain medicine and again, she was continuing her pain control and weightbearing status. She reports today that over the past 3 days her pain has worsened over the pelvis and "right hip." She has been unable to weightbear on the right leg secondary to pain. She denies any recent falls. Denies bowel or bladder changes. Denies radicular leg pain. She has been taking Percocet at home, which has not been controlling her pain. She has been ambulating with a walker for the past several weeks but has found this to be quite challenging recently. PAST MEDICAL HISTORY: Significant for rheumatoid arthritis. PAST SURGICAL HISTORY: Significant for hysterectomy; lumbar fusion in 2013, Dr. Bowman; left hip replacement and CABG. ALLERGIES: TYLENOL AND OXYCODONE. MEDICATIONS: At home include Humira, aspirin, Lipitor, calcitonin nasal spray, calcium plus vitamin D, folic acid, Synthroid, Cozaar, methotrexate, Prilosec, Mirapex and prednisone as well as-needed [place], potassium, sulindac and Lasix. SOCIAL HISTORY: She lives with her son. She is retired. Alcohol and tobacco denies. PHYSICAL EXAMINATION: GENERAL: She was seen at bed #386, bed #2. She is in no obvious distress. She rolls over on bed for me with ease. MUSCULOSKELETAL: Limited to musculoskeletal system. She has negative axial loading. Negative log rolling. Strength is intact bilateral lower extremities. IMAGING: I have a CT scan of the pelvis performed on 11/05/2016. This reveals bilateral sacral insufficiency fractures. No other abnormality in the pelvis. Also noted prior instrument and fusion at L4-L5. ASSESSMENT: Bilateral insufficiency fractures. PLAN: Treatment plan just conservative. Continue with pain control, DVT prophylaxis, bed rest. She may start physical therapy with limited weightbearing status as tolerated. May need inpatient rehab stay pending her PT/OT evals. If you have any further questions, please do not hesitate to contact us.
[2016-11-06] MEDS: TRIAMCINOLONE ACET 0.5% CR 15 GM TUBE EXT SCH ×2 (08:58→20:36)
[2016-11-06] MEDS: CALCIUM 600MG + VIT D 400 IU TAB PO SCH ×2 (09:01→20:35)
[2016-11-06] MEDS: ASPIRIN 81 MG ECTAB PO SCH (09:01)
[2016-11-06] MEDS: PANTOprazole SOD 40 MG TAB PO SCH (09:02)
[2016-11-06] MEDS: ATORVASTATIN 10 MG TAB PO SCH (09:02)
[2016-11-06] MEDS: PRAMIPEXOLE DIHYDROCHLORIDE 0.25MG TAB PO SCH ×2 (09:03→20:36)
[2016-11-06] MEDS: CALCITONIN SALMON NA 200 IU/AC 3.7 ML BTL SCH (09:04)
[2016-11-06 09:08] VITALS: BP 124/53; PULSE 66
[2016-11-06] MEDS: LOSARTAN POTASSIUM 50 MG TAB PO SCH (09:09)
[2016-11-06 09:19] LABS: BUN/CREATININE RATIO 15.6 (10-20); CALCIUM 8.7 mg/dl (8.5-10.1); MAGNESIUM 2.2 mg/dl (1.8-2.4); POTASSIUM 4.4 mmol/L (3.5-5.1)
[2016-11-06] MEDS ORDERED: IBUPROFEN 200 MG TAB PO PRN (10:00)
[2016-11-06] MEDS: LIDODERM (LIDOCAINE) PATCH 5% TD SCH (10:18)
[2016-11-06 11:00] VITALS: O2SAT 94
--- NOTE | 2016-11-06 14:42 | Progress Note ---
Subjective Date of Service: Nov 06, 2016. Subjective Pt evaluation today including: conversation w/ patient, physical exam, chart review, lab review, review of studies, review of inpatient medication list ongoing pain - controlled at rest but hurts a lot with any movement. wonders what we can do and how long it will take for pain to improve. outside of back pain she ntoes she's doing pretty well - no other complaints. notes that she takes calcium + D and had been on fosamax long enough that her PCP dc'd after she'd had what was deemed an adequate course of therapy. Problem List Medical Problems: (1) Ambulatory dysfunction Status: Acute (2) Sacral fracture Status: Acute Review of Systems ROS otherwise negative except for as above Objective Vital Signs Date Time Temp Pulse Resp B/P (MAP) Pulse Ox O2 Delivery O2 Flow Rate FiO2 11/06/16 11:00 94 Room Air 11/06/16 09:08 66 124/53 (76) 11/06/16 08:37 36.8 54 14 136/66 (89) Room Air 11/06/16 08:00 Room Air 11/05/16 23:42 Room Air 11/05/16 22:54 36.8 62 18 149/70 (96) 93 Room Air 11/05/16 22:18 36.9 94 20 150/78 Room Air 11/05/16 21:47 58 20 154/78 98 Room Air 11/05/16 19:47 58 18 153/77 96 Room Air 11/05/16 18:05 63 20 160/99 93 Room Air 11/05/16 16:20 63 20 139/71 93 Room Air 11/05/16 16:19 93 Room Air 11/05/16 15:19 36.6 66 20 167/66 99 Room Air Physical Exam General Appearance: no apparent distress Eyes: EOMI ENT: hearing grossly normal Neck: trachea midline Respiratory/Chest: no respiratory distress, no accessory muscle use Extremities: normal range of motion Neurologic/Psychiatric: payroll officer II-XII nml as tested, alert, normal mood/affect Skin: normal color, warm/dry Laboratory Results Last 24 Hours Test 11/05/16 16:00 11/06/16 07:48 11/06/16 10:04 White Blood Count 8.42 K/uL 7.02 K/uL Red Blood Count 4.24 M/uL 3.66 M/uL Hemoglobin 13.4 g/dL 12.0 g/dL Hematocrit 43.3 % 37.9 % Mean Corpuscular Volume 102.1 fL 103.6 fL Mean Corpuscular Hemoglobin 31.6 pg 32.8 pg Mean Corpuscular Hemoglobin Concent 30.9 g/dl 31.7 g/dl Platelet Count 284 K/uL 244 K/uL Mean Platelet Volume 9.8 fL 9.9 fL Neutrophils (%) (Auto) 78.3 % 54.0 % Lymphocytes (%) (Auto) 16.7 % 33.5 % Monocytes (%) (Auto) 3.2 % 8.0 % Eosinophils (%) (Auto) 0.2 % 2.3 % Basophils (%) (Auto) 0.5 % 0.6 % Neutrophils # (Auto) 6.59 K/uL 3.80 K/uL Lymphocytes # (Auto) 1.41 K/uL 2.35 K/uL Monocytes # (Auto) 0.27 K/uL 0.56 K/uL Eosinophils # (Auto) 0.02 K/uL 0.16 K/uL Basophils # (Auto) 0.04 K/uL 0.04 K/uL RDW Standard Deviation 56.4 fL 58.0 fL RDW Coefficient of Variation 15.2 % 15.3 % Immature Granulocyte % (Auto) 1.1 % 1.6 % Immature Granulocyte # (Auto) 0.09 K/uL 0.11 K/uL Prothrombin Time 11.2 SECONDS Prothromb Time International Ratio 1.0 Activated Partial Thromboplast Time 25.9 SECONDS Partial Thromboplastin Ratio 1.0 Sodium Level 143 mmol/L 144 mmol/L Potassium Level 4.3 mmol/L 4.4 mmol/L Chloride Level 109 mmol/L 109 mmol/L Carbon Dioxide Level 27 mmol/L 29 mmol/L Anion Gap 7.0 mmol/L 6.0 mmol/L Blood Urea Nitrogen 16 mg/dl 16 mg/dl Creatinine 1.00 mg/dl 1.00 mg/dl Est Creatinine Clear Calc Drug Dose 45.0 ml/min 44.0 ml/min Estimated GFR () 62.5 62.5 Estimated GFR (Non- 53.9 53.9 BUN/Creatinine Ratio 15.6 15.6 Random Glucose 129 mg/dl 84 mg/dl Calcium Level 8.9 mg/dl 8.7 mg/dl Magnesium Level 2.2 mg/dl Vitamin B12 Level 291 pg/mL 25-Hydroxy Vitamin D Total 24.6 ng/ml Folate > 24.00 ng/mL Assessment and Plan Bilateral sacral insufficiency fractures -osteoporotic, no trauma -lidocaine patch -ibuprofen, percocet, morphine scaled approach prn pain -miacalcin nasal spray for ~4wks -PT/OT and likely to need rehab RA -ongoing prednisone, home meds osteoporosis and vitamin D insufficiency -continue calcium + D BID, add additional 2000IU D daily indefinitely, 50,000x1 since somewhat low -has been on adequate course of treatment per her hx, would recommend outpt endocrine eval for next-level treatments after discharge Restless leg syndrome--continue pramipexole 2 tablets by mouth twice a day. GERD--pantoprazole 40 mg by mouth daily. Left lower extremity psoriasis--triamcinolone cream twice a day, for now, follow Hypothyroidism--continue levothyroxine sodium 25 g by mouth daily. Hypercholesterolemia--continue atorvastatin 10 mg by mouth daily. Hypertension--continue losartan 50 mg by mouth daily, BP's overall have been adequate DVT proph - lovenox SQ
[2016-11-06] MEDS ORDERED: ERGOCALCIFEROL 50,000 INTER.UNIT CAP PO ONE (14:45)
[2016-11-06 15:48] VITALS: BP 138/60; PULSE 18; PULSE 65; TEMP 36.9; O2SAT 94
[2016-11-06 22:49] VITALS: BP 153/83; PULSE 66; TEMP 36.8; O2SAT 93
[2016-11-07] MEDS: LEVOTHYROXINE 25 MCG TAB PO SCH (05:54)
[2016-11-07 07:03] VITALS: BP 152/68; PULSE 62; TEMP 36.7; O2SAT 95
[2016-11-07] MEDS: TRIAMCINOLONE ACET 0.5% CR 15 GM TUBE EXT SCH (08:40)
[2016-11-07] MEDS: ASPIRIN 81 MG ECTAB PO SCH (08:40)
[2016-11-07] MEDS: CALCITONIN SALMON NA 200 IU/AC 3.7 ML BTL SCH (08:40)
[2016-11-07] MEDS: ATORVASTATIN 10 MG TAB PO SCH (08:40)
[2016-11-07] MEDS: CALCIUM 600MG + VIT D 400 IU TAB PO SCH (08:41)
[2016-11-07] MEDS: PRAMIPEXOLE DIHYDROCHLORIDE 0.25MG TAB PO SCH (08:41)
[2016-11-07] MEDS: PANTOprazole SOD 40 MG TAB PO SCH (08:44)
[2016-11-07] MEDS: LIDODERM (LIDOCAINE) PATCH 5% TD SCH (08:45)
[2016-11-07 08:46] VITALS: BP 139/53; PULSE 65
[2016-11-07] MEDS: LOSARTAN POTASSIUM 50 MG TAB PO SCH (08:47)
[2016-11-07] MEDS ORDERED: CYANOCOBALAMIN 500 MCG TAB (VIT B-12) PO SCH (09:00)
[2016-11-07] MEDS ORDERED: CALCITONIN SALMON NA 200 IU/AC 3.7 ML BTL SCH (09:00)
[2016-11-07] MEDS ORDERED: ENOXAPARIN 40 MG/0.4 ML SYR SQ SCH (09:00)
[2016-11-07] MEDS ORDERED: CHOLECALCIFEROL 1000 INTER.UNIT TAB PO SCH (09:00)
[2016-11-07] MEDS ORDERED: VTMB12 PO (09:39)
[2016-11-07] MEDS ORDERED: IBUP-1105 PO (09:39)
[2016-11-07] MEDS ORDERED: VTMD1000 PO (09:39)
[2016-11-07] MEDS ORDERED: LDDP5 TD (09:39)
--- NOTE | 2016-11-07 09:52 | Discharge Instructions ---
Discharge Instructions Date of Service Nov 07, 2016. Admission Reason for Admission: Bilateral Sacral Insufficiency Fx Discharge Discharge Diagnosis / Problem: sacral fracture from osteoporosis Discharge Goals Goal(s): Decrease discomfort, Improve function, Increase independence Activity Recommendations Activity Limitations: as noted below (use your walker, use the wheelchair if needed, and always put your safety first -a fall will have HUGE risk of a new fracture that could joyce you of your independence (possibly forever)) . Instructions / Follow-Up Instructions / Follow-Up sacral fracture pain control: -use the lidocaine patch over the area(s) that hurt -if the prescription patch isn't covered, they make an over the counter that is 4% lidocaine (the prescription is 5%) -- so if the Rx is too expensive, have the pharmacist direct you to the over the counter version -use ibuprofen 400mg up to three times a day as needed for mild to moderate pain (note - it is an anti-inflammatory, as is your sulindac (clinoril ) -- so while you're taking the ibuprofen DON'T take the sulindac in the same 24 hour period -use the hydrocodone/acetaminophen you already have prescribed for moderate to severe pain -use the miacalcin nasal spray for about a month, then discuss with your regular doctors regarding ongoing efficacy (for most people, after about a month , the fracture pain reduction benefit of the nasal spray has passed) walking/weakness -we've asked the case assistant to set up home therapy -use your walker at all times (unless you're using a wheelchair) -use extra caution - the biggest risk you are facing right now would be a new fall / new fracture - this happens frequently when people forget that they' re recovering from a fracture - and a broken hip / new spinal fracture would have a high probability of robbing you of independence (possibly forever); a skull fracture (less common, but does happen) would be dangerous for ending your life -- so while you're healing/recovering, always keep your safety first and foremost. also, it's always better to sit down than fall, if you're feeling like you might go down osteoporosis -you're already taking calcium and vitamin D, but despite this, your vitamin D level was still a bit low at 24.6 (we'd like to see it closer to 40) - because of this we've added an additional 2000 IU of vitamin D a day (keep taking what you were taking, take this ON TOP of the calcium plus D you're already on) -have your family doc repeat vitamin D levels in about 3 months -because you're already on calcium plus D, and because you've already had a good course of treatment with a bisphosphonate (fosamax) but you're still showing fractures, we strongly recommend that you see an deputy probation officer about higher level treatments to protect you from further fractures. our nurse navigator will be working on getting you set up for this; however, if you don't hear from us by about mid-tuesday, please call [phone] to check on your status for an endocrinology appointment (usually Dr Andino or Dr Palencia) B12 deficiency -your B12 level was a bit low at 291, and while you're not anemic, your red blood cells were a bit large, suggesting that your body isn't too happy with the low B12 levels -because you're not showing true anemia, nor are you showing evidence of B12 related nerve problems, we're likely going to be able to stave off problems with oral B12 replacement (as opposed to the traditional B12 injections) -we'll have you take 1000mcg of vitamin B12 daily, have your family doc repeat B12 levels (and a CBC to check on the size of your red blood cells) in about 3 months -if things aren't improving, then you might need to switch over to injections -it's possible that the omeprazole you're taking is part of the reason your levels are a bit low - often acid suppression like that will reduce your ability to absorb vitamins and minerals; however, your chronic prednisone and frequent need for anti- inflammatories also puts your stomach at risk for ulcers without protective medicines like omeprazole. discuss with your family doc and cryptologic supervisor ongoing in regards to the risk/benefit balance of meds to protect your stomach Current Hospital Diet Patient's current hospital diet: Regular Diet Discharge Diet Recommended Diet: Regular Diet Pending Studies Studies pending at discharge: no Medical Emergencies . Who to Call and When: Medical Emergencies: If at any time you feel your situation is an emergency, please call 911 immediately. . Non-Emergent Contact Non-Emergency issues call your: Primary Care Provider . . "Provider Documentation" section prepared by Prasanna Villalba. . VTE Core Measure Inpt VTE Proph given/why not?: Enoxaparin (Lovenox)SQ, SCD's [place] Drug Monitoring Program Search Results: patient reviewed within database, no issues identified
[2016-11-07 10:47] VITALS: BP 139/53; PULSE 65; TEMP 36.7; O2SAT 95
[2016-11-07] MEDS: HYDROCODONE/ACETAMOPHEN 5/325MG TAB PO PRN (11:59)
--- NOTE | 2016-11-07 17:49 | Discharge Summary ---
Discharge Summary Date of Service Nov 07, 2016. Discharge Summary Admission Date: Nov 05, 2016 at 21:06 Discharge Date: Nov 07, 2016 Discharge Disposition: Home with services Principal Diagnosis: back pain / sacral fractures Procedures: B12 291 vitamin D 24.6 ULTRASOUND RIGHT LOWER EXTREMITY VENOUS CLINICAL HISTORY: Right leg swelling. COMPARISON STUDY: No priors. TECHNIQUE: Real-time, grayscale, and color Doppler sonography of the deep veins of the right lower extremity was performed from the inguinal crease to the calf. Compression and augmentation were utilized. FINDINGS: There is no sonographic evidence of deep venous thrombosis identified in the right lower extremity. The common femoral, superficial femoral, and popliteal veins are patent and normally compressible. The greater saphenous vein and the profunda femoris vein at the junction with the common femoral vein are clear. The visualized calf veins are patent. IMPRESSION: There is no sonographic evidence of deep venous thrombosis identified in the right lower extremity. Electronically signed by: Preet Madera M.D. 11/05/2016 5:38 PM Dictated Date/Time: 11/05/2016 5:37 PM [~ rep ct add3]] CT SCAN OF THE BONY PELVIS WITHOUT IV CONTRAST CLINICAL HISTORY: Right pelvic pain. Known sacral insufficiency fractures. COMPARISON STUDY: MRI of the pelvis dated 10/25/2016. TECHNIQUE: CT scan of the bony pelvis is performed from the pelvic inlet to the proximal femora. Images are reviewed in the axial, sagittal and coronal planes. IV contrast was not administered for this examination. CT DOSE: 880.04 mGy cm FINDINGS: The skeletal structures are osteopenic. Bilateral sacral insufficiency fractures are identified. These were also seen on the 10/25/2016 pelvic MRI. No additional fracture is seen. No lytic or blastic lesions are identified. Fusion hardware is noted at L4-L5. A left hip arthroplasty is in place. There is no radiographic evidence of fracture or osteonecrosis involving the right hip. Sclerotic change is seen at the pubic symphysis. There is atherosclerotic calcification of the distal abdominal aorta and iliac arteries. 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 The bladder is grossly normal as visualized. The uterus is surgically absent. No adnexal lesion is suggested. There is moderate diverticulosis of the sigmoid colon without CT evidence of acute diverticulitis. No pelvic sidewall or inguinal lymphadenopathy is seen. There is symmetric atrophy of the pelvic musculature. A small fat-containing umbilical hernia is noted. IMPRESSION: 1. Bilateral sacral insufficiency fractures. These were also seen by MRI on 10/25/2016. 2. No acute bony abnormality is identified in the pelvis. 3. Sigmoid diverticulosis without CT evidence of acute diverticulitis. 4. Additional findings as above. Dictated: 11/05/2016 4:39 PM Transcribed: 11/05/2016 4:47 PM Greg Electronically signed by: Preet Madera M.D. 11/05/2016 4:54 PM Dictated Date/Time: 11/05/2016 4:39 PM Last Resulted CBC 11/06/16 07:48 Red Blood Count 3.66, Mean Corpuscular Volume 103.6, Mean Corpuscular Hemoglobin 32.8, Mean Corpuscular Hemoglobin Concent 31.7, Mean Platelet Volume 9.9, Neutrophils (%) (Auto) 54.0, Lymphocytes (%) (Auto) 33.5, Monocytes (%) ( Auto) 8.0, Eosinophils (%) (Auto) 2.3, Basophils (%) (Auto) 0.6, Neutrophils # ( Auto) 3.80, Lymphocytes # (Auto) 2.35, Monocytes # (Auto) 0.56, Eosinophils # ( Auto) 0.16, Basophils # (Auto) 0.04 Last Resulted BMP 11/06/16 07:48 Medication Reconciliation New Medications: Cholecalciferol (Vitamin D3) 1,000 Inter.unit Tab 2000 INTER.UNIT PO QAM, #30 TAB Cyanocobalamin (Vitamin B-12) 500 Mcg Tab 1000 MCG PO QAM, #30 TAB Ibuprofen (Ibuprofen) 200 Mg Tab 400 MG PO TID PRN for mild / moderate pain, #20 TAB take with food, use for mild/moderate pain Lidocaine (Lidocaine) 1 Patch Tdsy 1 PATCH TD QAM, #30 PATCH Continued Medications: Adalimumab (Humira Pen) 40 Mg/0.8 Ml Kit 1 DOSE SQ [id number] Aspirin (Aspirin Ec) 81 Mg Tab 81 MG PO DAILY Atorvastatin (Lipitor) 10 Mg Tab 10 MG PO DAILY, TAB Calcitonin ([place]) (Miacalcin) 200 Unit/Act Spr 1 SPRAY NA UD Calcium/Vitamin D (Os-Ruben 500 Plus D) Tab 1 TAB PO BID, TAB Folic Acid (Folic Acid) 1 Mg Tab 1 MG PO DAILY Furosemide (Lasix) 20 Mg Tab 20 MG PO DAILY PRN for EDEMA, TAB Hydrocodone/Acetaminophen 5MG/325MG (Brea 5MG/325MG) Tab 1-2 TABLET PO Q6 PRN for Pain, TAB PRN PAIN Levothyroxine Sodium (Synthroid) 25 Mcg Tab 25 MCG PO DAILY, TAB Losartan Potassium (Cozaar) 50 Mg Tab 50 MG PO DAILY, TAB Methotrexate (Methotrexate) 2.5 Mg Tab 15 MG PO TUESDAY, TAB Omeprazole (Prilosec) 20 Mg Capcr 20 MG PO DAILY, CAP Potassium Ext Rel (Klor-Con) 20 Meq Tabcr 20 MEQ PO DAILY PRN for , TAB Pramipexole (Mirapex) 0.125 Mg Tab 2 TABS PO BID, TAB Prednisone (Prednisone) 1 Mg Tab 3 MG PO DAILY, TAB Discontinued Medications: Sulindac (Clinoril) 200 Mg Tab 200 MG PO BID PRN for PRN, TAB Discharge Exam Physical Exam: General Appearance: no apparent distress Eyes: EOMI Neck: trachea midline Respiratory/Chest: no respiratory distress, no accessory muscle use Extremities: normal inspection Neurologic/Psychiatric: 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, alert, + pertinent finding (slow but steady gait and stable/slow transfers with walker) Skin: normal color, warm/dry Hospital Course Bilateral sacral insufficiency fractures -osteoporotic, no trauma -lidocaine patch -ibuprofen, hydrocodone as already Rx'd as outpt (PDMP reviewed - had 90 tabs Rx 'd about 2wks ago) -miacalcin nasal spray for ~4wks (notes she already has it at home) -PT/OT at home - as a nice surprise she improved far better and far faster than expected RA -ongoing prednisone, home meds osteoporosis and vitamin D insufficiency -continue calcium + D BID, add additional 2000IU D daily indefinitely, 50,000x1 since somewhat low, repeat level in ~12wks -has been on adequate course of treatment per her hx, would recommend outpt endocrine eval for next-level treatments after discharge macrocytosis/low vitamin B12 -level 291 -not anemic, but is macrocytic. no noted neurologic complications -since more precursor than active B12 deficiency illness - will give trial of PO supplementation 1000mcg daily x 3 months, repeat B12 and CBC - if not improving, then move to IM supplementation. ?related to PPI - although risks / benefits of this, given need for chronic steroids and frequent NSAIDs, is subject to ongoing discussion with pt and PCP DVT proph - lovenox SQ utilized during her stay initially expected that she would need rehab, but she improved well with pain control, and wanted to go home - showed proficiency with transfers and ambulation, is willing to go slow to be safe, has walker, wrote Rx for wheelchair for as needed use, and does appear safe/stable for home w home PT/OT and close PCP and ortho f/u Total Time Spent: Greater than 30 minutes This includes examination of the patient, discharge planning, medication reconciliation, and communication with other providers. Discharge Instructions Please refer to the electronic Patient Visit Report (Discharge Instructions) for additional information. Follow-Up PCP this coming week ortho 1-2wks Additional Copies To Ching Hu D.O.
== END 2016-11-07 12:38 | disposition home health service (06) ==
LOC: C.EDB 15:11 → C.MSN 21:06 → EDBEDREQSVC 21:12 → EDBEDREQ 21:12 → ENRESERV 21:17
PROVIDERS: ADMIT Hospitalist; ATTEND Family Medicine
DX: M80.08XA Age-related osteoporosis with current pathological fracture, vertebra(e), initial encounter for fracture (principal); Z98.1 Arthrodesis status; Z96.642 Presence of left artificial hip joint; M06.9 Rheumatoid arthritis, unspecified; G25.81 Restless legs syndrome; K21.9 Gastro-esophageal reflux disease without esophagitis; E03.9 Hypothyroidism, unspecified; E78.00 Pure hypercholesterolemia, unspecified; I10 Essential (primary) hypertension; Z98.61 Coronary angioplasty status; Z82.49 Family history of ischemic heart disease and other diseases of the circulatory system; Z87.891 Personal history of nicotine dependence; Z79.82 Long term (current) use of aspirin

== ENCOUNTER 2017-06-20 10:02 | Inpatient (IN) | payer OTHER ==
[2017-05-26 09:25] VITALS: BMI 28.0
--- NOTE | 2017-05-26 10:05 | PAT Medication Instructions ---
Service Date May 26, 2017. Current Home Medication List Aspirin (Aspirin Ec), 81 MG PO QAM Atorvastatin (Lipitor), 10 MG PO HS Calcium/Vitamin D (Os-Ruben 500 Plus D), 1 TAB PO BID Cholecalciferol (Vitamin D3), 1 TAB PO QAM Cyanocobalamin (Vitamin B12 500MCG), 500 MCG PO TID Folic Acid (Folic Acid), 1 MG PO QAM Furosemide (Lasix), 20 MG PO DAILY PRN for EDEMA Ibuprofen (Advil), 400 MG PO TID PRN for RN Levothyroxine Sodium (Synthroid), 25 MCG PO QAM Losartan Potassium (Cozaar), 50 MG PO QAM Methotrexate (Methotrexate), 8 TAB PO TUESDAY Omeprazole (Prilosec), 20 MG PO QAM Potassium Ext Rel (Klor-Con), 20 MEQ PO DAILY PRN for Pramipexole (Mirapex), 2 TABS PO HS Prednisone (Prednisone), 1 MG PO TID Medication Instructions For Your Scheduled Surgery Contact your surgeon for instructions for: Ibuprofen (Advil), 400 MG PO TID PRN for RN Contact your prescriber for instructions for: Methotrexate (Methotrexate), 8 TAB PO TUESDAY - Hold the following medications the night before surgery: Pramipexole (Mirapex), 2 TABS PO HS - Hold the following medications the morning of surgery: Losartan Potassium (Cozaar), 50 MG PO QAM Furosemide (Lasix), 20 MG PO DAILY PRN for EDEMA Calcium/Vitamin D (Os-Ruben 500 Plus D), 1 TAB PO BID Cholecalciferol (Vitamin D3), 1 TAB PO QAM Cyanocobalamin (Vitamin B12 500MCG), 500 MCG PO TID Folic Acid (Folic Acid), 1 MG PO QAM Potassium Ext Rel (Klor-Con), 20 MEQ PO DAILY PRN for - Take the following medications the morning of surgery with a sip of water: Prednisone (Prednisone), 1 MG PO TID Levothyroxine Sodium (Synthroid), 25 MCG PO QAM Omeprazole (Prilosec), 20 MG PO QAM Aspirin (Aspirin Ec), 81 MG PO QAM - Take the following medications as scheduled the night before surgery: Atorvastatin (Lipitor), 10 MG PO HS Furosemide (Lasix), 20 MG PO DAILY PRN for EDEMA (if needed) Calcium/Vitamin D (Os-Ruben 500 Plus D), 1 TAB PO BID Cyanocobalamin (Vitamin B12 500MCG), 500 MCG PO TID Potassium Ext Rel (Klor-Con), 20 MEQ PO DAILY PRN (if needed) If you have any questions please call us at [phone] or [phone] or [phone]
--- NOTE | 2017-05-26 11:10 | DIAGNOSTIC IMAGING REPORT ---
CERVICAL SPINE 2 OR 3 VIEWS HISTORY: 77 years-old Female RA pre-op, lateral: neutral, flexion, extension rheumatoid arthritis. Preoperative exam. COMPARISON: Cervical spine radiographs 08/10/2013 TECHNIQUE: Neutral, flexion and extension lateral radiographs of the neck. FINDINGS: There is 1 mm anterolisthesis C3 on C4, C4 on C5 and C5 on C6 redemonstrated with 2 mm anterolisthesis at C3 on C4 with flexion. The remaining levels appear unchanged throughout the study. Multilevel intervertebral disc space narrowing, endplate spurring and facet arthropathy. No acute fracture or subluxation identified. No prevertebral soft tissue swelling. IMPRESSION: 1. 1 mm anterolisthesis C3 on C4, C4 on C5 and C5 on C6 redemonstrated with 2 mm anterolisthesis at C3 on C4 with flexion compatible with mild instability. No evidence of instability at any additional levels. 2. No acute fracture. The above report was generated using voice recognition software. It may contain grammatical, syntax or spelling errors. Electronically signed by: Bartolome White M.D. 05/26/2017 11:09 AM Dictated Date/Time: 05/26/2017 11:05 AM
--- NOTE | 2017-05-26 11:15 | DIAGNOSTIC IMAGING REPORT ---
CHEST 2 VIEWS ROUTINE CLINICAL HISTORY: Preoperative chest COMPARISON STUDY: 08/10/2013 FINDINGS: The heart is the upper limits of normal in size. Underlying pulmonary emphysema is suspected.[ There is minor basilar atelectasis/scarring. There are equivocal subtle right upper lobe interstitial opacities, a finding of uncertain acute clinical significance. Correlation with any signs or symptoms of a pneumonitis is recommended. IMPRESSION: 1. Suspected underlying pulmonary emphysema 2. Equivocal subtle right upper lobe interstitial opacities, a finding of uncertain acute clinical significance Electronically signed by: Flaco Marrero M.D. 05/26/2017 11:13 AM Dictated Date/Time: 05/26/2017 11:03 AM
[2017-05-26 11:21] LABS: BASO % 0.7 %; BASO ABS # 0.06 K/uL (0-0.2); EOS % 0.6 %; EOS ABS # 0.05 K/uL (0-0.5); HEMATOCRIT 42.6 % (37-47); HEMOGLOBIN 13.5 g/dL (12.0-16.0); IG# 0.03 K/uL (0.00-0.02); LYMPH % 22.9 %; LYMPH ABS # 1.85 K/uL (1.2-3.4); MEAN CELL VOLUME 102.7 fL (80-100); MEAN CORPUSCULAR HEMOGLOBIN 32.5 pg (25-34); MEAN CORPUSCULAR HGB CONC 31.7 g/dl (32-36); MEAN PLATELET VOLUME 10.4 fL (7.4-10.4); MONO % 5.1 %; MONO ABS # 0.41 K/uL (0.11-0.59); NEUT % 70.3 %; NEUT ABS # 5.69 K/uL (1.4-6.5); PLATELET COUNT 260 K/uL (130-400); RED CELL DISTRIBUTION WIDTH CV 14.8 % (11.5-14.5); RED CELL DISTRIBUTION WIDTH SD 55.3 fL (36.4-46.3); WHITE BLOOD COUNT 8.09 K/uL (4.8-10.8)
[2017-05-26 12:40] LABS: CREATININE 1.02 mg/dl (0.60-1.20); POTASSIUM 4.6 mmol/L (3.5-5.1)
[2017-06-20] VITALS (7 sets, daily range): BP systolic 111–188; BP diastolic 59–86; PULSE 69–81; TEMP 36.3–36.9; O2SAT 98–100; Ht 157.5 cm; Wt 70.7 kg
[~2017-06-20] VITALS: Ht 157.5 cm; Wt 70.7 kg
[~2017-06-20 10:02] MED LIST changes: -ASPEC325 PO; +ASPI81TA28 PO; +ATROPINE SULFATE 0.1 MG/ML 5ML SYR IV PRN; +CEFAZOLIN 1000MG IV PUSH 5 ML IV SCH; +CHOL20007 PO; +CYAN500T13 PO; +EpHEDrine SULFATE INJ 50 MG/ML AMP IV PRN; +FURO-85 PO; -HYDR-5688 PO; +HYDROmorphone INJ 0.5 MG/0.5 ML SYR IV PRN; +IBUP-1050 PO; -KCLP20 PO; -LISI-461 PO; +LOSA50TA6 PO; -LSX40 PO; +ONDANSETRON INJ 2 MG/ML 2 ML VIAL IV PRN; -OXYC-57 PO; +PHENYLEPHRINE 100MCG/ML 5ML SYR IV PRN; +POTA20TA16 PO; +PRLSR20 PO
[2017-06-20] MEDS ORDERED: MIDAZOLAM HCL 1 MG/ML 2ML VIAL ONE (11:04)
[2017-06-20] MEDS ORDERED: FENTANYL CITRATE INJ 50 MCG/1 ML 2 ML VIAL ONE ×3 (11:04→13:06)
--- NOTE | 2017-06-20 11:17 | History & Physical Bridge Note ---
H&P Re-Evaluation Bridge Note: I have examined the patient, reviewed the History & Physical and in the interval since the performance of the History & Physical I have noted the following changes of clinical significance: No changes noted
--- NOTE | 2017-06-20 11:19 | History and Physical ---
History & Physical Date Jun 20, 2017. Chief Complaint Back and bilateral leg pain History of Present Illness The patient is a 77 year old female with complaints of back and bilateral leg pain Past Medical/Surgical History Medical Problems: (1) DJD (degenerative joint disease) of hip (2) Lumbar disc herniation with radiculopathy (3) Rheumatoid arthritis Surgical Problems: (1) H/O: hysterectomy (2) History of left hip replacement (3) Hx of CABG Additional History Hepatic Disease: No Endocrine Disorder: No Kidney Disease: No Hypertension: No Heart Disease: No Bleeding Tendencies: No Infectious Diseases: No Allergies Coded Allergies: NO KNOWN DRUG ALLERGIES (Verified Allergy, Unknown, NONE, 05/26/17) Shellfish (Verified Adverse Reaction, Mild, DIARRHEA, 06/20/17) Home Medications Scheduled Aspirin (Aspirin Ec), 81 MG PO QAM Atorvastatin (Lipitor), 10 MG PO HS Calcium/Vitamin D (Os-Ruben 500 Plus D), 1 TAB PO BID Cholecalciferol (Vitamin D3), 1 TAB PO QAM Cyanocobalamin (Vitamin B12 500MCG), 500 MCG PO TID Folic Acid (Folic Acid), 1 MG PO QAM Levothyroxine Sodium (Synthroid), 25 MCG PO QAM Losartan Potassium (Cozaar), 50 MG PO QAM Methotrexate (Methotrexate), 8 TAB PO TUESDAY Omeprazole (Prilosec), 20 MG PO QAM Pramipexole (Mirapex), 2 TABS PO HS Prednisone (Prednisone), 1 MG PO TID Scheduled PRN Furosemide (Lasix), 20 MG PO DAILY PRN for EDEMA Ibuprofen (Advil), 400 MG PO TID PRN for RN Potassium Ext Rel (Klor-Con), 20 MEQ PO DAILY PRN for Physical Examination Skin: warm/dry, no rash Eyes: normal inspection, EOMI, sclerae normal ENT: normal ENT inspection, pharynx normal Head: normocephalic, atraumatic Neck: supple, no adenopathy, trachea midline Respiratory/Chest: lungs clear, normal breath sounds, no respiratory distress Cardiovascular: regular rate, rhythm, no edema, no murmur Abdomen / GI: normal bowel sounds, non tender Back: normal inspection Extremities: normal inspection, normal range of motion Neurologic/Psych: no motor/sensory deficits, alert, normal reflexes, oriented x 3 Diagnosis Lumbar spinal stenosis Plan of Treatment Removal of instrumentation L4 5 decompression fusion L3 4 with iliac bolts
[2017-06-20] MEDS ORDERED: BACITRACIN 50000 UNIT VIAL ONE (11:30)
[2017-06-20] MEDS ORDERED: BUPIVACAINE 0.5 % 5 MG/1 ML MPF 30ML VIAL ONE (11:33)
[2017-06-20] MEDS ORDERED: EpINEphrine INJ 1MG/ML AMP 1 MG/ML AMP ONE (11:33)
[2017-06-20] MEDS ORDERED: HYDROmorphone INJ 2 MG/ML SYR/VIAL ONE ×2 (12:17→14:10)
[2017-06-20] MEDS ORDERED: FLOSEAL HEMOSTATIC MATRIX 10ML TOP ONE (14:06)
[2017-06-20] MEDS ORDERED: PROPOFOL IV EMULSION 10 MG/ML 20 ML VIAL IV ONE (14:06)
[2017-06-20] MEDS ORDERED: EpHEDrine SULFATE 50MG/5ML SYR ONE (14:06)
[2017-06-20] MEDS ORDERED: LIDOCAINE HCL 2% 2 ML VIAL (20MG/ML) ONE (14:06)
[2017-06-20] MEDS ORDERED: ROCURONIUM BROMIDE 10 MG/ML 5 ML VIAL IV ONE (14:06)
[2017-06-20] MEDS ORDERED: ONDANSETRON INJ 2 MG/ML 2 ML VIAL ONE ×2 (14:06→14:27)
[2017-06-20] MEDS ORDERED: DEXAMETHASONE SOD INJ 4 MG/ML VIAL ONE (14:06)
--- NOTE | 2017-06-20 14:07 | DIAGNOSTIC IMAGING REPORT ---
LUMBAR SPINE, INTRAOPERATIVE FLUOROSCOPY HISTORY: L3-S1 posterior fusion. FLUOROSCOPY TIME: 20 seconds. FINDINGS: Intraoperative fluoroscopy was provided for the lumbar spine. 4 fluoroscopic spot images were obtained. Posterior decompression fusion from L3 through S1 with pedicle screws and rods. There are bilateral iliac bolts present. The hardware appears intact. IMPRESSION: Fluoroscopy provided for a posterior decompression fusion from L3 through S1. Electronically signed by: Saul Lopez M.D. 06/20/2017 2:05 PM Dictated Date/Time: 06/20/2017 2:03 PM
[2017-06-20] MEDS ORDERED: SODIUM CHLORIDE 0.9% 1000ML 1,000 ML IV SCH (14:08)
--- NOTE | 2017-06-20 14:08 | [facility] Operative Report ---
Operative Report Operative Date Jun 20, 2017. Pre-Operative Diagnosis Previous Fusion L4-L5, Lumbar spinal stenosis L3-L4 Post-Operative Diagnosis Previous Fusion L4-L5, Lumbar spinal stenosis L3-L4 Procedure(s) Performed #1 removal posterior transportation L4 5. #2 expiration of fusion L4 5. #3 lumbar decompression medial facetectomies foraminotomies L3 4. #4 posterior spinal fusion L3 4 L5-S1. #5 bilateral SI joint fusions. #6 placement posterior segmental instrumentation L3 to S1 with bilateral iliac bolts. #7 interbody fusion L3 4 #8 placement peek cage 10 x 22 mm at L3 4. #9 placement locally harvested morcellized autograft in the posterior lateral gutters. #10 placement infuse collagen sponge about mask graft the posterior gutters and ostial amp bone graft in the interbody space. Surgeon Dr. Bowman Air Director Surgeon(s) ANDREW Saldivar Estimated Blood Loss 325 ml Findings Severe spinal stenosis Specimens A. Removed Hardware L4-L5 Description of Procedure Patient was met with preoperatively case discussed all questions addressed. After informed consent obtained patient was taken to the operative suite underwent intubation placed in a prone position the [place] table on top of the Karsten frame. All bony prominences well-padded eyes inspected to ensure no external pressure placed upon them. This point the lumbar spine was prepped and draped in the normal sterile fashion. Sharp dissection with the assistance of Bovie cautery was performed onto an exposing the lamina and transverse processes of L3 instrumentation L4 5 sacral Jimena in the bilateral SI joints. Then proceeded remove the hardware bilaterally 45 exposing the fusion mass noting it to be intact. Then performed a complete laminectomy of L3 addressing severe lateral recess stenosis foraminal disease as well as disc herniation in the axilla region of 34 on the right. After this is complete pedicle screws were placed in L3-L4 L5-S1 as well as bilateral iliac bolts. Purposes capri was then placed. Through a transforaminal approach on the right a complete discectomy of L3 4 was performed and plate created to subcortical bleeding bone and a 7 x 22 mm peek cage filled with ostial amp bone graft tapped in position. The rods were then locked and final position bilaterally. The transverse processes of L3 L4 L5 sacral alar in the bilateral SI joints were burred to subcortical bleeding bone. Infuse collagen sponge mask graft locally harvested morcellized autograft was placed within the SI joints in the lateral gutters. 15 round VIGNESH drain inserted. Incision was then closed with 1 Vicryl in the fascia 2-0 Vicryl subcutaneous C 4 Monocryl for final skin closure Steri-Strips sterile dressings placed. Patient we can take PACU stable. Please note Charo Blackburn was present throughout the entire procedure involved in patient positioning complex portions of the surgery and final skin closure. I attest to the content of the Intraoperative Record and any orders documented therein. Any exceptions are noted below.
[2017-06-20] MEDS ORDERED: hydrOXYzine HCL 25 MG TAB PO PRN (14:15)
[2017-06-20] MEDS ORDERED: POTASSIUM CHLORIDE 20 MEQ TABCR PO PRN (14:15)
[2017-06-20] MEDS ORDERED: ALUMINUM/MAGNESIUM SUSP 30 ML UDC PO PRN (14:15)
[2017-06-20] MEDS ORDERED: PROMETHAZINE HCL INJ 12.5 MG in SODIUM CHLORIDE 0.9% 50ML 50 ML IV PRN (14:15)
[2017-06-20] MEDS ORDERED: ONDANSETRON INJ 2 MG/ML 2 ML VIAL IV PRN (14:15)
[2017-06-20] MEDS ORDERED: SOD PHOSPHATE/SOD BIPHOSPHATE ENEMA 132 ML BTL PR PRN (14:15)
[2017-06-20] MEDS ORDERED: ACETAMINOPHEN IV 100 ML IV PRN (14:15)
[2017-06-20] MEDS ORDERED: FAMOTIDINE 20 MG TAB PO PRN (14:15)
[2017-06-20] MEDS ORDERED: MAGNESIUM HYDROXIDE SUSP 30 ML UDC PO PRN (14:15)
[2017-06-20] MEDS ORDERED: NALOXONE HCL 0.4 MG/1 ML VIAL/CARP IV PRN (14:15)
[2017-06-20] MEDS ORDERED: FUROSEMIDE 20 MG TAB PO PRN (14:15)
[2017-06-20] MEDS ORDERED: LORAZEPAM 0.5 MG TAB PO PRN (14:15)
[2017-06-20] MEDS ORDERED: METOCLOPRAMIDE HCL INJ 5 MG/ML 2 ML VIAL IV PRN (14:15)
[2017-06-20] MEDS ORDERED: BISACODYL 10 MG SUPP PR PRN (14:15)
[2017-06-20] MEDS ORDERED: ACETAMINOPHEN 500 MG TAB PO PRN (14:15)
[2017-06-20] MEDS ORDERED: LORAZEPAM INJ 0.5 MG in SYRINGE 0.75 ML IV PRN (14:15)
[2017-06-20] MEDS ORDERED: DO NOT ADMINISTER FLU VACCINE PRN (14:15)
[2017-06-20] MEDS ORDERED: DO NOT ADMINISTER PNEUMOCOCCAL VACCINE PRN (14:15)
[2017-06-20] MEDS ORDERED: NEOSTIGMINE METHYLSULFATE 1 MG/ML 10ML VIAL ONE (14:27)
[2017-06-20] MEDS ORDERED: GLYCOPYRROLATE INJ 0.2 MG/ML VIAL ONE (14:27)
[2017-06-20] MEDS ORDERED: HYDROmorphone INJ 1 MG/ML SYR ONE (14:32)
[2017-06-20] MEDS: HYDROmorphone HCL 0.5MG/ML 50 ML CASSETTE IV PRN ×2 (14:36→23:19)
--- NOTE | 2017-06-20 15:07 | Anesthesiology Progress Note ---
Anesthesia Post Op Note Date & Time Jun 20, 2017 at 15:07 Vital Signs Pain Intensity: 4 Vital Signs Past 12 Hours Date Time Temp Pulse Resp B/P (MAP) Pulse Ox O2 Delivery O2 Flow Rate FiO2 06/20/17 14:50 80 12 174/66 99 Nasal Cannula 4 06/20/17 14:40 87 20 178/86 100 Oxymask 10 06/20/17 14:30 94 14 182/83 99 Oxymask 10 06/20/17 14:21 36.1 84 13 135/88 99 Oxymask 10 06/20/17 10:44 36.9 69 18 188/79 98 Room Air Notes Mental Status: alert / awake / arousable, participated in evaluation Pt Amnestic to Procedure: Yes Nausea / Vomiting: adequately controlled Pain: adequately controlled Airway Patency, RR, SpO2: stable & adequate BP & HR: stable & adequate Hydration State: stable & adequate Anesthetic Complications: no major complications apparent
[2017-06-20] MEDS: SODIUM CHLORIDE 0.9% 1000ML 1,000 ML IV SCH ×2 (16:32→23:13)
[2017-06-20] MEDS: CEFAZOLIN IV 1,000 MG in SYRINGE 0 ML IV SCH (20:54)
[2017-06-20] MEDS: DOCUSATE SODIUM/SENNA 50/8.6MG TAB PO SCH (20:56)
[2017-06-20] MEDS: PRAMIPEXOLE DIHYDROCHLORIDE 0.25MG TAB PO SCH (20:56)
[2017-06-20] MEDS: ATORVASTATIN 10 MG TAB PO SCH (20:57)
[2017-06-21 03:17] VITALS: BP 102/57; PULSE 71; TEMP 36.4; O2SAT 100
[2017-06-21] MEDS: CEFAZOLIN IV 1,000 MG in SYRINGE 0 ML IV SCH (03:32)
[2017-06-21] MEDS: SODIUM CHLORIDE 0.9% 1000ML 1,000 ML IV SCH (05:50)
[2017-06-21] MEDS: LEVOTHYROXINE 25 MCG TAB PO SCH (05:50)
[2017-06-21] MEDS ORDERED: DC PCA ONE (06:00)
[2017-06-21] MEDS ORDERED: HYDROmorphone INJ 0.5 MG/0.5 ML SYR IV PRN (06:00)
[2017-06-21] MEDS ORDERED: NALOXONE HCL 0.4 MG/1 ML VIAL/CARP IV PRN (06:00)
[2017-06-21] MEDS ORDERED: NURSING VERBAL MED ORDER ONE (06:15)
[2017-06-21 06:42] LABS: BASO % 0.1 %; BASO ABS # 0.01 K/uL (0-0.2); HEMATOCRIT 29.3 % (37-47); HEMOGLOBIN 9.1 g/dL (12.0-16.0); IG# 0.07 K/uL (0.00-0.02); LYMPH % 4.5 %; MEAN CELL VOLUME 102.1 fL (80-100); MEAN CORPUSCULAR HEMOGLOBIN 31.7 pg (25-34); MEAN CORPUSCULAR HGB CONC 31.1 g/dl (32-36); MEAN PLATELET VOLUME 9.2 fL (7.4-10.4); MONO % 9.7 %; MONO ABS # 1.71 K/uL (0.11-0.59); NEUT % 85.3 %; NEUT ABS # 15.01 K/uL (1.4-6.5); PLATELET COUNT 184 K/uL (130-400); RED CELL DISTRIBUTION WIDTH CV 14.3 % (11.5-14.5); RED CELL DISTRIBUTION WIDTH SD 53.1 fL (36.4-46.3)
[2017-06-21 07:10] LABS: CALCIUM 7.4 mg/dl (8.5-10.1); CREATININE 0.92 mg/dl (0.60-1.20); POTASSIUM 4.6 mmol/L (3.5-5.1)
[2017-06-21 07:16] VITALS: BP 99/59; PULSE 73; TEMP 36.8; O2SAT 100
--- NOTE | 2017-06-21 07:46 | Anesthesiology Progress Note ---
Anesthesia Post Op Note Date & Time Jun 21, 2017 at 07:46 Vital Signs Pain Intensity: 4.0 Vital Signs Past 12 Hours Date Time Temp Pulse Resp B/P (MAP) Pulse Ox O2 Delivery O2 Flow Rate FiO2 06/21/17 07:16 36.8 73 19 99/59 (72) 100 Nasal Cannula 2.0 06/21/17 07:16 Room Air 06/21/17 03:17 36.4 71 16 102/57 (72) 100 Nasal Cannula 2.0 06/21/17 00:11 Nasal Cannula 2.0 06/20/17 23:49 36.3 78 17 111/64 (80) 100 Nasal Cannula 2.0 Notes Mental Status: alert / awake / arousable, participated in evaluation Pt Amnestic to Procedure: Yes Nausea / Vomiting: adequately controlled Pain: adequately controlled Airway Patency, RR, SpO2: stable & adequate BP & HR: stable & adequate Hydration State: stable & adequate Anesthetic Complications: no major complications apparent
[2017-06-21] MEDS: ASPIRIN 81 MG ECTAB PO SCH (08:26)
[2017-06-21] MEDS: OXYCODONE HCL IR 5 MG TAB (IMMEDIATE RELEASE) PO PRN ×3 (08:26→20:10)
[2017-06-21] MEDS: LOSARTAN POTASSIUM 50 MG TAB PO SCH (08:27)
[2017-06-21] MEDS: PANTOprazole SOD 40 MG TAB PO SCH (08:27)
[2017-06-21 10:17] VITALS: BP 134/65
--- NOTE | 2017-06-21 15:04 | Progress Note ---
Progress Note Date of Service Jun 21, 2017. Progress Note He shouldn't is postop day #1. Back pain is controlled. Leg pain improved. Vital signs stable. On exam she is good strength testing appears comfortable. Assessment status post lumbar decompression fusion replant this time continue physical therapy advance her bowel regimen as tolerated consider discharge home lateral this week.
[2017-06-21 15:16] VITALS: BP 156/72; PULSE 88; TEMP 36.8; O2SAT 93
[2017-06-21] MEDS: PRAMIPEXOLE DIHYDROCHLORIDE 0.25MG TAB PO SCH (22:32)
[2017-06-21] MEDS: DOCUSATE SODIUM/SENNA 50/8.6MG TAB PO SCH (22:33)
[2017-06-21] MEDS: ATORVASTATIN 10 MG TAB PO SCH (22:33)
[2017-06-21 23:46] VITALS: BP 123/65; PULSE 74; TEMP 36.8; O2SAT 92
[2017-06-22 00:20] VITALS: O2SAT 92
[2017-06-22] MEDS: OXYCODONE HCL IR 5 MG TAB (IMMEDIATE RELEASE) PO PRN ×3 (00:46→12:08)
[2017-06-22] MEDS: LEVOTHYROXINE 25 MCG TAB PO SCH (06:51)
[2017-06-22] MEDS: POLYETHYLENE (MIRALAX) 17 GM PACK PO SCH ×3 (06:52→17:59)
[2017-06-22 08:00] VITALS: BP 124/62; PULSE 74; TEMP 36.7; O2SAT 100
[2017-06-22 08:17] VITALS: O2SAT 100
[2017-06-22] MEDS: PANTOprazole SOD 40 MG TAB PO SCH (08:49)
[2017-06-22] MEDS: ASPIRIN 81 MG ECTAB PO SCH (08:49)
[2017-06-22] MEDS: LOSARTAN POTASSIUM 50 MG TAB PO SCH (08:49)
--- NOTE | 2017-06-22 09:38 | Clinical Documentation Query ---
CLINICAL DOCUMENTATION QUERY The patient is a 77 year old female with complaints of back and bilateral leg pain and underwent a removal of instrumentation L4 5 decompression fusion L3 4 with iliac bolts. In your clinical opinion is this patient being managed for: ( ) Acute blood-loss anemia ( ) Not Agree ( ) Other explanation of clinical findings (Please Explain) ( ) Unable to determine (Please Define) ( ) Need to Discuss The medical record reflects the following clinical findings, treatment, and risk factors. Clinical Indicators: Hgb 13.5 trending down >3 gms to 9.1 Treatment: Cross and screen 2 units PRBCs, IV hydration Risk Factors: Age, s/p surgical intervention Please clarify and document your clinical opinion in the progress notes and discharge summary. Terms such as "probable", "suspected", "likely", "questionable", "possible", or "still to be ruled out" are acceptable. IF IN AGREEMENT, YOU MUST DOCUMENT ABOVE DIAGNOSTIC STATEMENT IN DAILY PROGRESS NOTES AND DISCHARGE SUMMARY. This document is not part of the patient's record. Thank You, Dinora Tim RN [phone]
[2017-06-22] MEDS ORDERED: RXC5 PO (12:56)
--- NOTE | 2017-06-22 12:56 | Discharge Instructions ---
Discharge Instructions Date of Service Jun 22, 2017. Admission Reason for Admission: Lumbar Spinal Stenosis Discharge Discharge Diagnosis / Problem: lumbar stenosis Discharge Goals Goal(s): Decrease discomfort Activity Recommendations Activity Limitations: per Instructions/Follow-up section . Instructions / Follow-Up Instructions / Follow-Up ACTIVITY RECOMMENDATIONS: SELF CARE INSTRUCTIONS AFTER THORACIC/LUMBAR FUSIONS 1. You may walk to your tolerance. It is good exercise for your legs and back. Expect some back and intermittent leg aches and pains. 2. You may perform "counter-top" level activities (make a sandwich, diogo with a project, etc.). 3. No bending or lifting of more than 10 pounds or back twisting of any nature (roll like a log when turning in bed). 4. You may ride in a car for 20-30 minutes at a time. No driving until after your first visit with your doctor. 5. Frequent changes of position and restricting sitting to 30 minutes at a time will help limit the amount of back spasms and stiffness you may experience. 6. You may discontinue the use of ambulatory aids (cane, crutches, etc.) once your strength and confidence allow. 7. You may revenue settlements administrator the shower and let water strike your incision when you arrive home at least once daily. Do not take a tub bath, sit in a hot tub or go into a swimming pool until after your first recheck in the office. SPECIAL CARE INSTRUCTIONS: VERY IMPORTANT TO READ AND REVIEW A. Your surgical incision has been closed with a cosmetic suture under the skin that will dissolve in about 6 weeks. In 14 days, you can use a pair of clean scissors and cut the suture that is left outside of the skin at the ends of your incision. 1. The small skin tapes can be removed 7 days after surgery if they have not fallen off by that point. 2. You may keep the wound open to air as much as possible to promote healing after post-op day number 5 unless told otherwise by your doctor. 3. If you think the wound looks like it is becoming infected (redness or worsening drainage) and/or you are experiencing fever, chill or worsening back pain and muscle spasms, contact the office so that we may evaluate you as soon as possible. B. Complications are uncommon, but please contact us if you have any signs or symptoms of: 1. wound infection (fever higher than 102.5 degrees F, redness, separation of wound, drainage, or increasing pain from the incision) 2. blood clots in legs (pain, swelling, redness and warmth in legs) 3. urinary tract infection (fever higher than 102.5 degrees F, burning upon urination or increased frequency of urination) 4. nerve problems (inability to walk on your toes or heels, numbness, loss of bowel or bladder control) 5. any other symptoms that concern you C. Please call the office at if you have any concerns or questions about your operation or recovery. D. No smoking! Smoking drastically decreases the chance of a solid fusion. E. Do not take any anti-inflammatory medications (Indocin, Advil, Motrin, Aspirin, Naprosyn, etc.) as these may inhibit the chance of a solid fusion. Tylenol is okay to take for pain. MANAGING PAIN AFTER SPINAL SURGERY 1. Narcotic medication is intended for short-term use and will be provided for surgical pain. Surgical pain usually lasts for a period of 4-6 weeks. Narcotic medication includes Percocet, Vicodin, Darvocet, Tylenol #3 or Lortab. 2. Longer-term pain is more appropriately treated with non-narcotic medication such as Tylenol ES. 3. Muscle spasm is not appropriately treated with narcotics. Muscle relaxers such as Soma, Flexeril or Skelaxin can be used along with Tylenol ES. 4. Remember that we all live with some "aches and pains". This is not unusual or uncommon after an injury or as we get older. a. Back pain is expected and may include muscle spasms for 4 to 6 weeks after surgery. The pain should gradually improve. If the pain worsens for no apparent reason, please contact the office. b. Intermittent leg pain may also be experienced and should not be concerned about unless it worsens for no apparent reason. If so, please contact the office. 5. We will provide appropriate medication within the normal guidelines of their prescribed use. We will also be very cautious and aware of potential abuse and extended duration of patients' medication needs. a. Pain medications are for your comfort and to assist with sleep and rest so that the tissue can heal. They are not provided in order to return to normal activity and should not be used through the day. To do so or worsening pain at night can result from ongoing tissue damage and development of tolerance to the prescribed medicine. 6. Please allow 2-3 days to process refills. Prescriptions will not be mailed but must be picked up at the office. FOLLOW UP VISIT: Keep your scheduled follow-up appointment. Any questions, please call the office at . Current Hospital Diet Patient's current hospital diet: Regular Diet Discharge Diet Recommended Diet: Regular Diet Procedures Procedures Performed: #1 removal posterior transportation L4 5. #2 expiration of fusion L4 5. #3 lumbar decompression medial facetectomies foraminotomies L3 4. #4 posterior spinal fusion L3 4 L5-S1. #5 bilateral SI joint fusions. #6 placement posterior segmental instrumentation L3 to S1 with bilateral iliac bolts. #7 interbody fusion L3 4 #8 placement peek cage 10 x 22 mm at L3 4. #9 placement locally harvested morcellized autograft in the posterior lateral gutters. #10 placement infuse collagen sponge about mask graft the posterior gutters and ostial amp bone graft in the interbody space. Pending Studies Studies pending at discharge: no Medical Emergencies . Who to Call and When: Medical Emergencies: If at any time you feel your situation is an emergency, please call 911 immediately. . Non-Emergent Contact Non-Emergency issues call your: Primary Care Provider . "Provider Documentation" section prepared by Jeff Bowman. . VTE Core Measure Inpt VTE Proph given/why not?: Ankur Del Toro, SCD's
--- NOTE | 2017-06-22 13:39 | Progress Note ---
Progress Note Date of Service Jun 22, 2017. Progress Note Patient is back pain is well-controlled. Leg pain markedly improved. Vital signs stable. On exam she has good strength testing. She appears quite comfortable. Assessment status post fusion. Plan we'll continue physical therapy and anticipate home tomorrow.
[2017-06-22 15:12] VITALS: BP 153/69; PULSE 92; TEMP 37.5; O2SAT 92
[2017-06-22] MEDS: ATORVASTATIN 10 MG TAB PO SCH (21:40)
[2017-06-22] MEDS: DOCUSATE SODIUM/SENNA 50/8.6MG TAB PO SCH (21:40)
[2017-06-22] MEDS: PRAMIPEXOLE DIHYDROCHLORIDE 0.25MG TAB PO SCH (21:40)
[2017-06-23 01:00] VITALS: O2SAT 90
[2017-06-23 01:15] VITALS: BP 141/58; PULSE 103; TEMP 37; O2SAT 90
[2017-06-23] MEDS: POLYETHYLENE (MIRALAX) 17 GM PACK PO SCH ×3 (06:00→12:00)
[2017-06-23] MEDS: LEVOTHYROXINE 25 MCG TAB PO SCH (06:14)
[2017-06-23 06:57] VITALS: BP 127/73; PULSE 83; TEMP 36.8; O2SAT 93
--- NOTE | 2017-06-23 08:48 | Discharge Summary ---
Orthopedic Discharge Summary Admission Date/Reason Jun 20, 2017 at 11:30 Lumbar Spinal Stenosis. Discharge Date/Disposition Jun 24, 2017 Home Diagnosis Principal Diagnosis: Lumbar spinal stenosis Admission Physical Exam As per Admitting History & Physical. Hospital Course Patient underwent lumbar decompression fusion tolerated this well taken to the orthopedic floor postoperatively. Postoperative day #1 she was up in a majority progressive posterior pain #2. Postoperative day #3 she was discharged home. Discharge orders and instructions found in the chart for further review. Discharge Instructions Please refer to the electronic Patient Visit Report (Discharge Instructions) for additional information.
[2017-06-23] MEDS: ASPIRIN 81 MG ECTAB PO SCH (08:51)
[2017-06-23] MEDS: PANTOprazole SOD 40 MG TAB PO SCH (08:52)
[2017-06-23] MEDS: LOSARTAN POTASSIUM 50 MG TAB PO SCH (08:55)
[2017-06-23 08:56] VITALS: BP 97/57
[2017-06-23 11:32] VITALS: BP 97/57; PULSE 83; TEMP 36.8; O2SAT 93
== END 2017-06-23 14:20 | disposition home or self-care (01) | DRG 455 ==
LOC: C.ACU 10:02 → C.3E 11:30 → ENRESERV 15:14
PROVIDERS: ADMIT Orthopaedic Surgery Orthopaedic Surgery of the Spine; ATTEND Orthopaedic Surgery Orthopaedic Surgery of the Spine
PROC: 0SP004Z Removal of Internal Fixation Device from Lumbar Vertebral Joint, Open Approach (ICD-10-PCS; principal; 2017-06-20 12:15)
PROC: 0ST20ZZ Resection of Lumbar Vertebral Disc, Open Approach (ICD-10-PCS; principal; 2017-06-20 12:15)
PROC: 0SG1071 Fusion of 2 or more Lumbar Vertebral Joints with Autologous Tissue Substitute, Posterior Approach, Posterior Column, Open Approach (ICD-10-PCS; principal; 2017-06-20 12:15)
PROC: 0SG704Z Fusion of Right Sacroiliac Joint with Internal Fixation Device, Open Approach (ICD-10-PCS; principal; 2017-06-20 12:15)
PROC: 0SG3071 Fusion of Lumbosacral Joint with Autologous Tissue Substitute, Posterior Approach, Posterior Column, Open Approach (ICD-10-PCS; principal; 2017-06-20 12:15)
PROC: 0SG707Z Fusion of Right Sacroiliac Joint with Autologous Tissue Substitute, Open Approach (ICD-10-PCS; principal; 2017-06-20 12:15)
PROC: 0SG00AJ Fusion of Lumbar Vertebral Joint with Interbody Fusion Device, Posterior Approach, Anterior Column, Open Approach (ICD-10-PCS; principal; 2017-06-20 12:15)
PROC: 0SG80KZ Fusion of Left Sacroiliac Joint with Nonautologous Tissue Substitute, Open Approach (ICD-10-PCS; principal; 2017-06-20 12:15)
PROC: 0SG70KZ Fusion of Right Sacroiliac Joint with Nonautologous Tissue Substitute, Open Approach (ICD-10-PCS; principal; 2017-06-20 12:15)
PROC: 0SG804Z Fusion of Left Sacroiliac Joint with Internal Fixation Device, Open Approach (ICD-10-PCS; principal; 2017-06-20 12:15)
PROC: 0SG807Z Fusion of Left Sacroiliac Joint with Autologous Tissue Substitute, Open Approach (ICD-10-PCS; principal; 2017-06-20 12:15)
DX: M48.061 Spinal stenosis, lumbar region without neurogenic claudication (principal); I10 Essential (primary) hypertension; I25.10 Atherosclerotic heart disease of native coronary artery without angina pectoris; E78.5 Hyperlipidemia, unspecified; K21.9 Gastro-esophageal reflux disease without esophagitis; M06.9 Rheumatoid arthritis, unspecified; M19.90 Unspecified osteoarthritis, unspecified site; G25.81 Restless legs syndrome; L40.9 Psoriasis, unspecified; Z98.1 Arthrodesis status; Z96.642 Presence of left artificial hip joint; Z95.1 Presence of aortocoronary bypass graft; Z87.891 Personal history of nicotine dependence; Z79.82 Long term (current) use of aspirin; Z79.52 Long term (current) use of systemic steroids; Z79.899 Other long term (current) drug therapy